=== PATIENT | male | born 1965 | race Caucasian/White ===

== ENCOUNTER 2020-09-05 09:34 | Emergency (ER) | payer OTHER, SELFPAY ==
--- NOTE | ~2020-09-05 | CT_ITS ---
EXAMINATION: CT ABDOMEN AND PELVIS WITH CONTRAST CLINICAL INFORMATION: Left lower quadrant pain. Prior history diverticulitis COMPARISON: Portable chest 09/05/2020 TECHNIQUE: Multidetector volumetric images were obtained from the superior aspect of the liver through the pubic symphysis following administration 85 mL of Omnipaque 350 intravenous contrast. Sagittal and coronal reformatted images were obtained on the technologist's workstation. Oral contrast: No This CT examination was performed using dose optimization techniques as appropriate, variously including the following: *Automated exposure control *Adjustment of mA and/or kV according to patient size (this includes techniques or standardized protocols for targeted exams where dose is matched to indication/reason for exam; i.e. extremities or head) *Use of iterative reconstruction technique DLP: 1016 mGy-cm FINDINGS: LUNG BASES: The visualized lung bases are unremarkable. LIVER, GALLBLADDER, AND BILIARY TREE: The liver is within upper limits of normal size and smooth in contour. There is mild hepatic steatosis. No focal hepatic parenchymal lesion or intrahepatic ductal dilatation. The gallbladder shows no stone or dilatation or wall thickening. No pericholecystic inflammatory changes. The common duct is unremarkable. PANCREAS: Unremarkable. SPLEEN: Normal in size. Incidental 1.6 cm splenule left upper quadrant. ADRENAL GLANDS: Unremarkable. KIDNEYS AND URETERS: There is a congenital horseshoe kidney with functioning isthmus. There are multiple nonobstructing left renal calculi measuring up to 0.6 cm. No hydronephrosis, hydroureter, or perinephric stranding. Subcentimeter cyst present on right. BLADDER: Unremarkable. GASTROINTESTINAL TRACT: There are focal inflammatory changes around the proximal descending colon in an area of diverticula consistent with diverticulitis. There is no proximal obstruction, paracolic fluid collection, pneumatosis, or free air. The appendix is normal. There is no ascites or fluid collection. Some very subtle increased attenuation is present in the central mesentery consistent with mesenteric lipodystrophy. ABDOMINAL WALL: No significant hernia is appreciated. LYMPH NODES: No lymphadenopathy. VASCULAR: There is a chronic appearing heavily calcified thrombus within the proximal left main renal vein measuring 1.4 cm in diameter by 3.2 cm in length. PELVIC VISCERA: Unremarkable. OSSEOUS STRUCTURES: No acute bony abnormality. There are degenerative changes L4-L5 and L5-S1. Results called to provider Terri Gonzalez PA-C in the Emergency Department at [address]/CT abdomen pelvis w con IMPRESSION: 1. Diverticulitis in region of proximal descending colon. No paracolic fluid collection, proximal obstruction, or free air. 2. Mild central mesentery lipodystrophy. No adenopathy or ascites. 3. 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 No hydronephrosis or perinephric stranding. 4. 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
--- NOTE | ~2020-09-05 | XR_ITS ---
EXAMINATION: XR CHEST CLINICAL INFORMATION: Cough and fever COMPARISON: None TECHNIQUE: Frontal view of the chest was obtained. FINDINGS: No significant abnormality is noted involving the heart, lungs, mediastinum, bony thorax or soft tissues. XR/XR chest 1V IMPRESSION: Unremarkable chest examination.
[2020-09-05 09:37] VITALS: BP 139/72; PULSE 84; RESP 17; TEMP 37.4; O2SAT 98; BMI 41.5
[2020-09-05 09:54] VITALS: BP 145/88; PULSE 91; RESP 16; TEMP 37.1; O2SAT 98; BMI 40.1
[2020-09-05 09:59] VITALS: BP 145/88; PULSE 91; RESP 16; TEMP 37.1; O2SAT 98
[2020-09-05 10:09] VITALS: BP 145/88; PULSE 91; RESP 16; TEMP 37.1; O2SAT 98
[2020-09-05 10:33] LABS: Basophils Percent Auto 0.4 % (0-2); Eosinophils Absolute Auto 0.2 X10*3/uL (0.0-0.4); Eosinophils Percent Auto 2.1 % (0-4); Hematocrit 50.2 % (42-52); Hemoglobin 16.5 g/dl (14.0-18.0); Imm Gran Abs Auto 0.04 X10*3/uL (0.00-0.03); Imm Gran Pct Auto 0.4 % (0.0-0.4); Lymphocytes Absolute Auto 1.8 X10*3/uL (1.2-4.9); Lymphocytes Percent Auto 15.5 % (20-40); MANUAL DIFF FLAG NO; Mean Corpuscular HGB Conc 32.9 g/dl (31.0-36.0); Mean Corpuscular Hemoglobin 28.1 pg (27.0-33.0); Mean Corpuscular Volume 85.5 fL (80-98); Mean Platelet Volume 11.2 fL (9.4-12.4); Monocytes Absolute Auto 0.9 X10*3/uL (0.1-1.2); Neutrophils Absolute Auto 8.3 X10*3/uL (2.0-8.3); Neutrophils Percent Auto 73.6 % (45-73); Platelet Count 145 X10*3/uL (160-400); Red Blood Count 5.87 X10*6/uL (4.60-5.80); White Blood Count 11.3 X10*3/uL (4.8-10.8)
--- NOTE | 2020-09-05 10:52 | ED_ITS ---
HPI - Abdominal Pain General Chief Complaint: Abdominal Pain Stated Complaint: abd pain Time Seen by Provider: 09/05/20 10:12 Source: patient Mode of arrival: ambulatory History of Present Illness HPI narrative: 55-year-old male with a past medical history of diverticulosis presenting to the ED complaining of LLQ abdominal pain and fever T-max 101? x2 days. Admits symptoms are similar to prior diverticulitis. Also reports dry cough beginning this morning. Denies chills, nausea/vomiting, diarrhea, dysuria/hematuria, flank pain, CP/SOB MD elicited complaint: abdominal pain Related Data Previous Rx's Medication Instructions Recorded aspirin 81 mg PO DAILY #30 tab 09/05/20 ciprofloxacin HCl 500 mg PO Q12H 7 Days #14 tab 09/05/20 metronidazole [Flagyl] 500 mg PO Q8H 7 Days #21 tab 09/05/20 Allergies Allergy/AdvReac Type Severity Reaction Status Date / Time No Known Allergies Allergy Verified 09/05/20 10:01 Review of Systems Review of Systems Constitutional: + Fever, No Chills, No Fatigue, No Malaise Cardiovascular: No Chest Pain, No SOB Respiratory: + Cough, No Sputum, No Wheezing, No Dyspnea Gastrointestinal: No Nausea, No Vomiting, No Diarrhea, No Constipation, + Abdominal pain Genitourinary: No irregular bleeding, No Dysuria, No Urinary Frequency, No Hematuria, No Flank Pain, No Urinary Flow Changes, No Hesitancy Musculoskeletal: No joint pain, No Myalgias Skin: No Skin Lesions, No rash Neuro: No Weakness, No Numbness Yes all other systems are reviewed and are negative Physical Exam Vital Signs: Vital Signs: Last Vital Signs Temp 98.7 F 09/05/20 12:33 Pulse 76 09/05/20 14:01 Resp 15 09/05/20 14:01 BP 145/85 H 09/05/20 14:01 Pulse Ox 97 09/05/20 14:01 Body Mass Index 40.1 Const: General: cooperative, healthy appearing and comfortable Orientation/consciousness: patient oriented x3 Limitations: no limitations HENMT: Head: Yes normal to inspection Ears: hearing grossly normal bilaterally General nose exam: Normal external nose present Face and sinus: Yes normal facial exam Eyes: General: appearance normal, both eyes and all related structures EOM: EOMs intact bilaterally Neck: Neck: Yes normal visual inspection and Yes no meningeal signs Resp: Effort & Inspection: normal respiratory effort Auscultation: clear to auscultation bilaterally, no rhonchi and no wheezes Cardio: Rate: regular rate Heart sounds: S1 normal heart sound present and S2 normal heart sound present GI: Inspection: Yes normal to inspection Palpation (GI): Soft to palpation, Tenderness to palpation present (GI) in the LLQ, no guarding and not rigid : General: Yes no CVA tenderness Back/Spine/Pelvis: Back: no CVA tenderness Skin: Rashes: no rashes Wounds: no wounds Neuro: General: patient oriented x3 and no meningeal signs Gait exam (Neuro): Normal gait present Extrem: General: Yes normal to inspection Course Course Course Narrative: -mild leukocytosis of 11.3, labs otherwise unremarkable, UA negative -CXR unremarkable CT abdomen pelvis w con IMPRESSION: 1. Diverticulitis in region of proximal descending colon. No paracolic fluid collection, proximal obstruction, or free air. 2. Mild central mesentery lipodystrophy. No adenopathy or ascites. 3. 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 No hydronephrosis or perinephric stranding. 4. 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 > will consult vascular, Dr. Lanza pertaining to thrombus in left renal vein -[id number]--Spoke to vascular Dr. Lanza recommended initiating aspirin 81 daily. Will have patient follow-up with vascular/GI outpatient. Patient tolerated p.o. in the ED without difficulty. Worrisome signs and symptoms of strict return precautions discussed CT results obtained from [facility] from 10/13/2014 which showed a heterogeneous appearance of the left renal vein without enlargement of the left renal moiety or the left sided perinephric fat stranding which probably reflects unopacified blood from the left gonadal vein mixing into the left renal vein MDM - Abdominal Pain MDM Narrative Medical decision making narrative: 55-year-old male with a past medical history of diverticulosis presenting to the ED complaining of LLQ abdominal pain and fever T-max 101? x2 days. On exam VSS, NAD, abdomen soft with LLQ ttp, lungs CTA. Concern for diverticulitis vs colitis vs viral syndrome/COVID-19. Rule out pneumonia. Lower concern for appendicitis/UTI/pyelo or renal stone Plan: Labs, UA, CXR, COVID-19 testing, IVF, reassess Medical Records Attestation: I reviewed the patient's medical records. Lab Data Attestation: I reviewed the patient's lab results. Result diagrams: 09/05/20 10:13 09/05/20 10:13 Labs: Lab Results 09/05/20 09/05/20 09/05/20 Range/Units 10:13 10:13 10:13 WBC 11.3 H (4.8-10.8) X10*3/uL RBC 5.87 H (4.60-5.80) X10*6/uL Hgb 16.5 (14.0-18.0) g/dl Hct 50.2 (42-52) % MCV 85.5 (80-98) fL MCH 28.1 (27.0-33.0) pg MCHC 32.9 (31.0-36.0) g/dl RDW 13.0 (11.0-16.0) % Plt Count 145 L (160-400) X10*3/uL MPV 11.2 (9.4-12.4) fL Immature Gran % (Auto) 0.4 (0.0-0.4) % Neut % (Auto) 73.6 H (45-73) % Lymph % (Auto) 15.5 L (20-40) % Ashe % (Auto) 8.0 (2-11) % Eos % (Auto) 2.1 (0-4) % Baso % (Auto) 0.4 (0-2) % Lymph # (Auto) 1.8 (1.2-4.9) X10*3/uL [place] # (Auto) 0.9 (0.1-1.2) X10*3/uL Eos # (Auto) 0.2 (0.0-0.4) X10*3/uL Baso # (Auto) 0.0 (0.0-0.2) X10*3/uL Abs Immat Gran (auto) 0.04 H (0.00-0.03) X10*3/uL Absolute Neuts (auto) 8.3 (2.0-8.3) X10*3/uL Absolute Nucleated RBC 0.000 (0.0-0.012) X10*3/uL Nucleated RBC % (auto) 0.0 (0.0-0.2) /100WBC Hold Blue Top SEE NOTE Sodium 137 (135-145) mmol/L Potassium 4.1 (3.3-5.1) mmol/L Chloride 102 (96-108) mmol/L Carbon Dioxide 24 (22-29) mmol/L Anion Gap 15 (12-20) BUN 14 (9-16) mg/dL Creatinine 0.90 (0.5-1.4) mg/dL Estim Creat Clear Calc 127.0 Estimated GFR > 60 Random Glucose 109 (60-115) mg/dL Calcium 9.1 (8.4-10.2) mg/dL Total Bilirubin 1.1 H (0.0-1.0) mg/dL AST 18 (5-37) U/L ALT 20 (0-40) U/L Alkaline Phosphatase 63 (39-117) U/L Total Protein 7.2 (6.5-8.0) g/dL Albumin 4.0 (3.5-5.0) g/dL Lipase 20 (8-78) U/L Urine Color Urine Appearance Urine pH (5.0-8.0) Ur Specific [place] (1.005-1.025) Urine Protein (NEG-TRACE) MG/DL Urine Glucose (UA) (NEG) MG/DL Urine Ketones (NEG) MG/DL Urine Blood (NEG) Urine Nitrite (NEG) Ur Leukocyte Esterase (NEG) COVID-19 (ESTRELLA) (Negative) COVID-19 Clin Com 09/05/20 09/05/20 Range/Units 11:05 12:34 WBC (4.8-10.8) X10*3/uL RBC (4.60-5.80) X10*6/uL Hgb (14.0-18.0) g/dl Hct (42-52) % MCV (80-98) fL MCH (27.0-33.0) pg MCHC (31.0-36.0) g/dl RDW (11.0-16.0) % Plt Count (160-400) X10*3/uL MPV (9.4-12.4) fL Immature Gran % (Auto) (0.0-0.4) % Neut % (Auto) (45-73) % Lymph % (Auto) (20-40) % [place]he % (Auto) (2-11) % Eos % (Auto) (0-4) % Baso % (Auto) (0-2) % Lymph # (Auto) (1.2-4.9) X10*3/uL [place]he # (Auto) (0.1-1.2) X10*3/uL Eos # (Auto) (0.0-0.4) X10*3/uL Baso # (Auto) (0.0-0.2) X10*3/uL Abs Immat Gran (auto) (0.00-0.03) X10*3/uL Absolute Neuts (auto) (2.0-8.3) X10*3/uL Absolute Nucleated RBC (0.0-0.012) X10*3/uL Nucleated RBC % (auto) (0.0-0.2) /100WBC Hold Blue Top Sodium (135-145) mmol/L Potassium (3.3-5.1) mmol/L Chloride (96-108) mmol/L Carbon Dioxide (22-29) mmol/L Anion Gap (12-20) BUN (9-16) mg/dL Creatinine (0.5-1.4) mg/dL Estim Creat Clear Calc Estimated GFR Random Glucose (60-115) mg/dL Calcium (8.4-10.2) mg/dL Total Bilirubin (0.0-1.0) mg/dL AST (5-37) U/L ALT (0-40) U/L Alkaline Phosphatase (39-117) U/L Total Protein (6.5-8.0) g/dL Albumin (3.5-5.0) g/dL Lipase (8-78) U/L Urine Color DARK YELLOW Urine Appearance HAZY Urine pH 5.5 (5.0-8.0) Ur Specific [place] 1.025 (1.005-1.025) Urine Protein NEG (NEG-TRACE) MG/DL Urine Glucose (UA) NEG (NEG) MG/DL Urine Ketones 40 (NEG) MG/DL Urine Blood NEG (NEG) Urine Nitrite NEG (NEG) Ur Leukocyte Esterase NEG (NEG) COVID-19 (ESTRELLA) Negative (Negative) COVID-19 Clin Com See Note Discharge Plan Discharge Clinical Impression: Diverticulitis, Thrombosis of left renal vein Patient Disposition: Home, Self-Care Instructions: Diverticulitis (ED) Additional Instructions: You have diverticulitis, Cipro and Flagyl are antibiotics, take as prescribed In addition patient start taking aspirin for the thrombus that was seen your left renal vein. You need to follow-up with vascular specialist for this If your pain persists or worsens, becomes unbearable, have fever, inability to eat or drink, persistent nausea/vomiting, or blood in her stool return to the ED immediately Prescriptions: New metronidazole [Flagyl] 500 mg tablet 500 mg PO Q8H 7 Days Qty: 21 RF: 0 ciprofloxacin HCl 500 mg tablet 500 mg PO Q12H 7 Days Qty: 14 RF: 0 aspirin 81 mg tablet,chewable 81 mg PO DAILY Qty: 30 RF: 0 Referrals: Sedrick Brush MD [Physician] - 2 days Cachorro Lanza MD [Physician] - 2 days Interventions: ED Discharge Assessment Last Done: 09/05/20 15:05 Discharge Date/Time: 09/05/20 15:08 [facility], [facility] Past Medical History Attestation statement: The following information was validated with the patient. Medical History (Updated 09/05/20 @ 14:46 by JUSTINA Ochoa) Diverticulosis Social History Social History Alcohol intake: never Smoking Status: Never smoker Use of substances other than those prescribed or required for medical reasons: No Advance Directives: No Advance Directives Information Provided: No
[2020-09-05 10:58] LABS: Alanine Aminotransferase 20 U/L (0-40); Alkaline Phosphatase 63 U/L (39-117); Anion Gap 15 (12-20); Aspartate Amino Transferase 18 U/L (5-37); Bilirubin Total 1.1 mg/dL (0.0-1.0); Blood Urea Nitrogen 14 mg/dL (9-16); Calcium 9.1 mg/dL (8.4-10.2); Carbon Dioxide 24 mmol/L (22-29); Chloride 102 mmol/L (96-108); Estimated Glomerular Filt Rate > 60; Glucose Random 109 mg/dL (60-115); Lipase 20 U/L (8-78); Potassium 4.1 mmol/L (3.3-5.1); Sodium 137 mmol/L (135-145); Total Protein 7.2 g/dL (6.5-8.0)
[2020-09-05] MEDS: 0.9 % Sodium Chloride 1,000 ML 999 ML IVCONT (11:00)
[2020-09-05] MEDS: Ketorolac Tromethamine 15 MG/ML VIAL IVPUSH (11:00)
[2020-09-05 11:32] LABS: COVID-19 Test Negative (Negative)
[2020-09-05] MEDS: iohexoL 350 MG/ML 100 ML INFUS..BTL IV (12:10)
[2020-09-05 12:33] VITALS: BP 148/84; PULSE 72; RESP 16; TEMP 37.1; O2SAT 98
[2020-09-05 12:46] LABS: Glucose Urine UA NEG (NEG); Leukocyte Esterase Urine NEG (NEG); Nitrite Urine NEG (NEG); PH 5.5 (5.0-8.0); Specific Gravity - Urine 1.025 (1.005-1.025); Urine Blood NEG (NEG); Urine Ketones 40 MG/DL (NEG); Urine Protein NEG (NEG-TRACE)
[2020-09-05 12:47] LABS: Appearance Urine HAZY; Color Urine DARK YELLOW
[2020-09-05] MEDS: metroNIDAZOLE 500 MG TABLET PO (14:00)
[2020-09-05 14:01] VITALS: BP 145/85; PULSE 76; RESP 15; O2SAT 97
== END 2020-09-05 15:08 | disposition home or self-care (01) ==
PROVIDERS: Physician Assistant; Emergency Provider Emergency Medicine; PCP Internal Medicine
DX: K57.32 Diverticulitis of large intestine without perforation or abscess without bleeding (principal); I82.3 Embolism and thrombosis of renal vein; Z20.822 Contact with and (suspected) exposure to COVID-19
CPT/HCPCS: 36415; 71045; 74177; 80053; 81003; 83690; 85025; 87635; 96361; 96374; 99284; 99285; J1885; Q9967

== ENCOUNTER 2023-06-27 13:21 | Inpatient (IN) | payer OTHER, SELFPAY ==
--- NOTE | ~2023-06-27 | CT_ITS ---
EXAMINATION: CT ABDOMEN AND PELVIS WITH CONTRAST CLINICAL INFORMATION: Diverticulitis. Left lower quadrant abdominal pain. COMPARISON: CT abdomen and pelvis from 09/05/2020. TECHNIQUE: Multidetector volumetric imaging was performed through the abdomen and pelvis after the administration of 85 mL of Omnipaque 350 intravenous contrast. Sagittal and coronal reformatted images were obtained on the technologist's workstation. This CT examination was performed using dose optimization techniques as appropriate, variously including the following: *Automated exposure control. *Adjustment of mA and/or kV according to patient size (this includes techniques or standardized protocols for targeted exams where dose is matched to indication/reason for exam; i.e. extremities or head). *Use of iterative reconstruction technique. DLP: 1111 mGy-cm. FINDINGS: Lower Chest: Mild to moderate bilateral dependent atelectasis. Otherwise, no diffuse or focal parenchymal abnormalities in the visualized lung bases. No demonstrated abnormalities of the visualized cardiac structures. Liver, Biliary Ducts, and Gallbladder: The liver is normal in size and attenuation without focal hepatic lesions or biliary ductal dilatation. The gallbladder is physiologically distended without radiopaque gallstones, pericholecystic fluid, or significant gallbladder wall thickening. Pancreas: The pancreas is normal in appearance. Adrenal Glands: The adrenal glands are normal in appearance. Spleen: The spleen is normal in appearance. Kidneys and Ureters: Horseshoe morphology of the kidney joint in the midline beneath the inferior mesenteric artery. Few nonobstructive renal stones associated with the left renal moiety, measuring up to 0.4 cm. No evidence of hydronephrosis. No ureterolithiasis or hydroureter. Urinary Bladder: The urinary bladder is partially distended without focal wall thickening. No bladder calculi are demonstrated. Gastrointestinal System: The stomach is decompressed and therefore not well evaluated on this exam. The small bowel is of normal caliber without regions of abnormal wall enhancement. Moderate descending and sigmoid colon diverticulosis. Moderate fat stranding surrounding an approximately 5 cm long segment of the descending colon with edematous wall thickening. No demonstrated discrete extraluminal fluid collection or gas. Otherwise, the colon is normal in appearance without additional segments of focal wall thickening or pericolonic inflammatory change. Normal appendix. Genitourinary: The prostate gland and seminal vesicles are normal in appearance. Intra-abdominal and Retroperitoneal Spaces: No intra-abdominal free fluid collections or gas. No mesenteric, retroperitoneal, or inguinal lymphadenopathy. Vasculature: The abdominal aorta is of normal contour and caliber. Similar to prior exam, there is a 5 cm long segment of coarse irregular calcification within an expanded left renal vein, suggestive of chronic nonocclusive thrombus. Musculoskeletal: Moderate multilevel degenerative changes of the spine. Straightening of the normal lumbar lordosis. Mild degenerative stepwise retrolistheses of L3-S1. Moderate degenerative disc disease at L4-L5 and L5-S1. Moderate disc bulges with posterior osseous ridging and facet joint arthropathy leads to osseous stenoses of the L4-L5 and L5-S1 neural foramina. No suspicious lytic or sclerotic osseous lesions demonstrated. No soft tissue masses demonstrated. CT/CT abdomen pelvis w IV con IMPRESSION: 1. Diverticulitis involving approximately 5 cm section of the descending colon. Moderate pericolonic fat stranding without demonstrated discrete extraluminal fluid collection or gas. 2. Horseshoe kidney with nonobstructive nephrolithiasis. 3. 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 4. 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
--- NOTE | 2023-06-27 13:32 | ED_ITS ---
HPI - Abdominal Pain General Chief Complaint: Abdominal Pain Stated Complaint: diverticulitis Time Seen by Provider: 06/27/23 15:36 Source: patient Mode of arrival: ambulatory Limitations: no limitations History of Present Illness HPI narrative: This is a 58-year-old male history of obesity, diverticulitis presenting with complaints of severe left lower quadrant pain that started yesterday and has been progressively worsening along with decreased bowel movements over the past few days. Patient reports his last bowel movement was this morning but it was very small and not his typical. Patient states he has not had any flatus. He denies nausea, vomiting, diarrhea, headache, vision changes, fevers, chills, chest pain and shortness of breath. Related Data Previous Rx's Medication Instructions Recorded aspirin 81 mg chewable tablet 81 mg PO DAILY #30 tabs 09/05/20 ciprofloxacin HCl 500 mg tablet 500 mg PO Q12H 7 days #14 tabs 09/05/20 metronidazole 500 mg tablet 500 mg PO Q8H 7 days #21 tabs 09/05/20 (Flagyl) Allergies Allergy/AdvReac Type Severity Reaction Status Date / Time No Known Allergies Allergy Verified 09/05/20 10:01 Review of Systems Review of Systems Constitutional : No Weight loss, No Fever, No Chills, No Fatigue, No Malaise ENT/Mouth : No sore throat, No Rhinorrhea Eyes: No Eye Pain, No Swelling, No Redness Cardiovascular : No Chest Pain, No SOB, No Dyspnea on Exertion, No Orthopnea, No Edema, No Palpitations Respiratory : No Cough, No Sputum, No Wheezing Gastrointestinal : No Nausea, No Vomiting, No Diarrhea, No Constipation, + abdominal Pain, No Hematochezia, No Melena Genitourinary : No Dysuria, No Urinary Frequency, No Hematuria, Musculoskeletal : No joint pain, No Myalgias, No Joint Swelling Skin : No Skin Lesions, No rash Neuro : No Weakness, No Numbness, No Dizziness, No Headache Psych : No Anxiety/Panic, No Depression All other systems reviewed and are negative Yes all other systems are reviewed and are negative [facility] Past Medical History Attestation statement: The following information was validated with the patient. Source: old records reviewed and nursing notes reviewed Medical History (Updated 06/27/23 @ 18:09 by JUSTINA Solares) Diverticulosis Social History Social History Alcohol intake: never Smoked in Last 30 Days: No Use of substances other than those prescribed or required for medical reasons: No Advance Directives: No Advance Directives Information Provided: Yes Physical Exam ED Vital Signs: Vital Signs - 24 hr 06/27/23 13:33 06/27/23 16:14 06/27/23 17:55 Temperature 98.3 F 97.6 F 98.3 F Pulse Rate 100 75 76 Respiratory Rate 16 16 16 Blood Pressure 147/111 H 124/79 133/70 Pulse Oximetry 95 97 95 Oxygen Delivery Method Room Air Room Air Room Air BMI result Body Mass Index 43.0 vss Appearance: Alert.? Oriented X3.? No acute distress.? Head: Normocephalic, atraumatic, no step-offs or deformities Eyes: Pupils equal, round and reactive to light.? ENT: Pharynx normal.? Neck: Normal inspection.? Neck supple.? CVS: Normal heart rate and rhythm.? Pulses normal.? Respiratory: No respiratory distress.? Breath sounds normal.? Abdomen: Soft and significant left lower quadrant pain..? Skin: Skin warm and dry.? Normal skin color.? Normal skin turgor.? Extremities: No lower extremity edema.? No calf ttp. 5/5 strength to bilateral upper and lower extremities Neuro: Oriented X 3.? No motor deficit.? No sensory deficit. CN 2-12 intact Course Course Course Narrative: RME: Left abdominal pain w/history of diverticulitis. C/O severe pain starting yesterday. No fevers, chest pain, n/v/d. Last BM 'barely' this AM. No bleeding from rectum. Denies passing flatus. Hypertensive in triage: 147/111 Reevaluation(s) Reevaluation #1: CBC with leukocytosis and neutrophil predominance. Chemistry unremarkable no acute findings requiring intervention. UA, CT scan pending.Patient still in significant pain. Time: 16:18 Reevaluation #2: Dilaudid was ordered and seem to help. CT scan still pending. Signed out to Diaz PRESSLEY Time: 18:09 Medical Decision Making Medical Decision Making [facility] Narrative: [id number] 58-year-old male presents with 2 days of severe left lower quadrant pain with decreased bowel movements. Physical exam with left lower quadrant tenderness to palpation. Patient appears very uncomfortable. Hypertensive likely secondary to pain. History and physical exam concerning for acute diverticulitis versus obstruction. Unlikely acute abdomen, appendicitis, pancreatitis, cholecystitis. Hypertension likely secondary to pain unlikely hypertensive urgency or emergency. Plan at this time labs, imaging, urine. At this time infection suspected. Blood cultures, lactic acid will be obtained will give fluids and antibiotics. Differential Diagnosis Differential Diagnoses: The differential diagnosis associated with the presentation includes History and physical exam concerning for acute diverticulitis versus obstruction. Unlikely acute abdomen, appendicitis, pancreatitis, cholecystitis. Hypertension likely secondary to pain unlikely hypertensive urgency or emergency. Admission/Observation Consideration of admission/observation: Escalation of care including admission/observation considered Likely Consult Healthcare Provider Management of the patient was discussed with: Geographic Information System Analyst Lab Data MDM Lab Attestation statement: I reviewed the patient's lab results. 06/27/23 14:21 06/27/23 14:21 Labs: Lab Results 06/27/23 06/27/23 06/27/23 Range/Units 14:21 16:46 17:56 WBC 15.9 H (4.8-10.8) X10*3/uL RBC 5.75 (4.60-5.80) X10*6/uL Hgb 16.3 (14.0-18.0) g/dl Hct 49.1 (42.0-52.0) % MCV 85.4 (80.0-98.0) fL MCH 28.3 (27.0-33.0) pg MCHC 33.2 (31.0-36.0) g/dl RDW 13.0 (11.0-16.0) % Plt Count 144 L (160-400) X10*3/uL MPV 10.5 (9.4-12.4) fL Immature Gran % (Auto) 0.4 (0.0-0.4) % Neut % (Auto) 78.0 H (45-73) % Lymph % (Auto) 9.5 L (20-40) % Bartholomew % (Auto) 9.8 (2-11) % Eos % (Auto) 1.9 (0-4) % Baso % (Auto) 0.4 (0-2) % Lymph # (Auto) 1.5 (1.2-4.9) X10*3/uL Bartholomew # (Auto) 1.6 H (0.1-1.2) X10*3/uL Eos # (Auto) 0.3 (0.0-0.4) X10*3/uL Baso # (Auto) 0.1 (0.0-0.2) X10*3/uL Abs Immat Gran (auto) 0.07 H (0.00-0.03) X10*3/uL Absolute Neuts (auto) 12.4 H (2.0-8.3) x10*3/uL Absolute Nucleated RBC 0.000 (0.0-0.012) X10*3/uL Nucleated RBC % (auto) 0.0 (0.0-0.2) /100WBC Smear Tech's Comments VERIFIED Sodium 138 (135-145) mmol/L Potassium 4.3 (3.3-5.1) mmol/L Chloride 105 (96-108) mmol/L Carbon Dioxide 26 (22-29) mmol/L Anion Gap 11 L (12-20) BUN 16 (9-16) mg/dL Creatinine 0.85 (0.5-1.4) mg/dL Estim Creat Clear Calc 134.8 Estimated GFR > 60 Random Glucose 95 (60-115) mg/dL Lactic Acid 1.2 (0.5-2.0) mmol/L Calcium 9.3 (8.4-10.2) mg/dL Phosphorus 3.0 (2.7-4.5) mg/dL Magnesium 2.0 (1.6-2.6) mg/dL Total Bilirubin 1.0 (0.0-1.0) mg/dL AST 20 (5-37) U/L ALT 25 (0-40) U/L Alkaline Phosphatase 65 (39-117) U/L Total Protein 7.5 (6.5-8.0) g/dL Albumin 4.1 (3.5-5.0) g/dL Triglycerides 121 (<150) mg/dL Lipase 283 H (8-78) U/L Urine Color Yellow Urine Appearance Clear Urine pH 6.5 (5.0-9.0) Ur Specific [place] >= 1.030 H (1.005-1.025) Urine Protein Negative (Neg-Trace) mg/dL Urine Glucose (UA) Negative (Negative) mg/dL Urine Ketones Negative (Negative) mg/dL Urine Blood Negative (Negative) Urine Nitrite Negative (Negative) Ur Leukocyte Esterase Negative (Negative) Independent Interpretation I performed an independent interpretation of an: CT Scan Radiology Impression Discussion of test interpretation with radiology: I have reviewed the radiologist's reading. External Record Review External record reviewed: Inpatient record, Office record, Outpatient record, Prior outpatient labs, Prior outpatient radiology, Primary care record and Outside ED record Medications Administered Discontinued Medications Generic Name Dose Route Start Last Admin Trade Name Freq PRN Reason Stop Dose Admin Hydromorphone HCl 1 mg 06/27/23 16:11 06/27/23 16:58 Hydromorphone Hcl 1 Mg/Ml Syringe IVPUSH 06/27/23 16:12 1 mg ONCE ONE Administration Protocol Sodium Chloride 4,082.34 mls @ 4,082.34 mls/hr 06/27/23 16:18 06/27/23 17:06 Ns 30 ml/kg infuse over 1 hr (4082.34 ml) 06/27/23 17:17 4,082.34 mls/hr IV Administration .Q1H STA Piperacillin Sod/Tazobactam 50 mls @ 100 mls/hr 06/27/23 16:18 06/27/23 17:48 Sod 3.375 gm/ Sodium Chloride IV 06/27/23 16:47 Infused ONCE ONE Infusion Iohexol 100 ml 06/27/23 17:25 06/27/23 17:28 Iohexol 350 Mg/Ml 100 Ml Infus..Btl IV 06/27/23 17:26 85 ml ONCE ONE Administration Morphine Sulfate 2 mg 06/27/23 13:40 06/27/23 13:45 Morphine Sulfate 2 Mg/Ml Cartridge IM 06/27/23 13:41 2 mg ONCE ONE Administration Protocol Ondansetron HCl 4 mg 06/27/23 13:40 06/27/23 13:44 Ondansetron Odt 4 Mg Tab.Rapdis TRANSLINGU 06/27/23 13:41 4 mg ONCE ONE Administration Critical Care Time Critical Care Time Critical Care Time: Yes Total Critical Care Time: 45 Attestation: I attest to this time spent taking care of the patient, obtaining history, physical, reviewing labs, imaging, speaking to my attending, speaking to specialist. Discharge Plan Discharge Clinical Impression: Diverticulitis Patient Disposition: Still a Patient Prescriptions: No Action metronidazole [Flagyl] 500 mg tablet 500 mg PO Q8H 7 Days Qty: 21 0RF ciprofloxacin HCl 500 mg tablet 500 mg PO Q12H 7 Days Qty: 14 0RF aspirin 81 mg tablet,chewable 81 mg PO DAILY Qty: 30 0RF
[2023-06-27 13:33] VITALS: BP 147/111; PULSE 100; RESP 16; TEMP 36.8; O2SAT 95; BMI 43.0
[2023-06-27] MEDS: Ondansetron ODT 4 MG TAB.RAPDIS TRANSLINGU (13:44)
[2023-06-27] MEDS: Morphine Sulfate 2 MG/ML CARTRIDGE IM (13:45)
[2023-06-27 14:28] LABS: Basophils Absolute Auto 0.1 X10*3/uL (0.0-0.2); Basophils Percent Auto 0.4 % (0-2); Eosinophils Absolute Auto 0.3 X10*3/uL (0.0-0.4); Eosinophils Percent Auto 1.9 % (0-4); Hematocrit 49.1 % (42.0-52.0); Hemoglobin 16.3 g/dl (14.0-18.0); Imm Gran Abs Auto 0.07 X10*3/uL (0.00-0.03); Imm Gran Pct Auto 0.4 % (0.0-0.4); Lymphocytes Absolute Auto 1.5 X10*3/uL (1.2-4.9); Lymphocytes Percent Auto 9.5 % (20-40); MANUAL DIFF FLAG SCAN; Mean Corpuscular HGB Conc 33.2 g/dl (31.0-36.0); Mean Corpuscular Hemoglobin 28.3 pg (27.0-33.0); Mean Corpuscular Volume 85.4 fL (80.0-98.0); Mean Platelet Volume 10.5 fL (9.4-12.4); Monocytes Absolute Auto 1.6 X10*3/uL (0.1-1.2); Monocytes Percent Auto 9.8 % (2-11); Neutrophils Absolute Auto 12.4 x10*3/uL (2.0-8.3); Platelet Count 144 X10*3/uL (160-400); Red Blood Count 5.75 X10*6/uL (4.60-5.80); SCAN SMEAR FLAG 1; White Blood Count 15.9 X10*3/uL (4.8-10.8)
[2023-06-27 14:42] LABS: Alanine Aminotransferase 25 U/L (0-40); Albumin Level 4.1 g/dL (3.5-5.0); Alkaline Phosphatase 65 U/L (39-117); Anion Gap 11 (12-20); Aspartate Amino Transferase 20 U/L (5-37); Blood Urea Nitrogen 16 mg/dL (9-16); Calcium 9.3 mg/dL (8.4-10.2); Carbon Dioxide 26 mmol/L (22-29); Chloride 105 mmol/L (96-108); Creatinine Clr Calc Pharmacy 134.8; Estimated Glomerular Filt Rate > 60; Glucose Random 95 mg/dL (60-115); Potassium 4.3 mmol/L (3.3-5.1); Sodium 138 mmol/L (135-145); Total Protein 7.5 g/dL (6.5-8.0)
[2023-06-27 14:49] LABS: SLIDE REVIEW VERIFIED
[2023-06-27 16:05] LABS: Lipase 283 U/L (8-78)
[2023-06-27 16:14] VITALS: BP 124/79; PULSE 75; RESP 16; TEMP 36.4; O2SAT 97
[2023-06-27 16:43] LABS: Triglycerides 121 mg/dL (<150)
--- NOTE | 2023-06-27 16:48 | MHC.EDTECH ---
LACTIC ACID AND BOTH SETS OF BLOOD CULTURE DRAWN AND SENT TO LAB .
[2023-06-27] MEDS: HYDROmorphone HCl 1 MG/ML SYRINGE IVPUSH ×2 (16:58→19:48)
[2023-06-27 17:04] LABS: Lactic Acid 1.2 mmol/L (0.5-2.0)
[2023-06-27] MEDS: Piperacillin Sodium/Tazobactam 3.375 GM in 0.9 % Sodium Chloride 50 ML IV ×2 (17:06→22:16)
[2023-06-27] MEDS: iohexoL 350 MG/ML 100 ML INFUS..BTL IV (17:28)
[2023-06-27 17:55] VITALS: BP 133/70; PULSE 76; RESP 16; TEMP 36.8; O2SAT 95
[2023-06-27 18:04] LABS: Appearance Urine Clear; Color Urine Yellow; Glucose Urine UA Negative (Negative); Leukocyte Esterase Urine Negative (Negative); Nitrite Urine Negative (Negative); PH 6.5 (5.0-9.0); Specific Gravity - Urine >= 1.030 (1.005-1.025); Urine Blood Negative (Negative); Urine Ketones Negative (Negative); Urine Protein Negative (Neg-Trace)
[2023-06-27 19:27] VITALS: BP 123/59; PULSE 80; RESP 17; TEMP 37.6; O2SAT 98
--- NOTE | 2023-06-27 20:33 | P.HPHOSP_ITS ---
History of Present Illness Date of Service: 06/27/23 Attending physician on admission: Leo Etienne Chief Complaint: Abdominal Pain Pt is a 58-year-old male with a PMH significant for?diverticulitis (2020 and 2021) and moderate persistent asthma who presents to the ED with?severe left- sided abdominal pain since last night. Patient states symptoms began approximately 22:00 when he developed severe, sharp and stabbing lower left- sided abdominal pain. Symptoms worsened this morning and patient thus presented to the ED for further evaluation. Denies any nausea or vomiting. Has had some constipation in the past few days; last bowel movement was earlier today when he went just ?a little bit? and stool was soft and watery. No hematochezia or melena. Patient's pain worsens with movement or deep breathing. Patient reports two previous episodes of diverticulitis, with the first one on 09/05/2020. [place] [facility] [place] home from the ED on oral antibiotics. The 2nd episode occurred approximately 1 year later and was much more severe. Patient then went to [facility] [place] and was hospitalized for 4 days. Patient reports current episode is somewhere in the middle, though does endorse significant 10/10 pain. Denies chest pain/pressure, palpitations. No fever, chills. Denies shortness of breath. In the ED pt was initially mildly hypertensive at 147/111 and had elevated temperature of 99.6 degrees, vitals otherwise WNL. Labs were significant for leukocytosis of 15.9 and lipase 283, otherwise grossly unremarkable. Stable H&H. No electrolyte imbalances. Renal and hepatic function WNL. Lactic acid WNL at 1.2. UA negative for UTI. CT of abdomen and pelvis found diverticulitis involving 5 cm section of descending colon with moderate pericolonic fat stranding without evidence for abscess or perforation. 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 Pt was treated with ondansetron, morphine, Dilaudid, IVF, and Zosyn. Pt will be admitted to the hospital for treatment and further evaluation of acute on chronic diverticulitis. Review of Systems 2 Review of Systems: Severe lower left-sided abdominal pain Denies nausea, vomiting No fever, chills Denies diarrhea No shortness a breath Denies chest pain/pressure, palpitations PMFSH Medical History (Updated 06/27/23 @ 22:02 by JUSTINA Graham) Moderate persistent asthma Diverticulosis Social History Alcohol intake: never Smoked in Last 30 Days: No Use of substances other than those prescribed or required for medical reasons: No Advance Directives: No Advance Directives Information Provided: Yes Meds Allergies Allergy/AdvReac Type Severity Reaction Status Date / Time No Known Allergies Allergy Verified 09/05/20 10:01 Home Medications Medication Instructions Recorded Confirmed Last Taken Type acetaminophen 325 mg tablet 650 mg PO Q6H PRN Pain 06/27/23 06/27/23 Unknown History (Tylenol) albuterol sulfate 90 mcg/actuation 2 puff inhalation Q6H PRN wheezing 06/27/23 06/27/23 Unknown History aerosol inhaler (Ventolin HFA) cholecalciferol (vitamin D3) 25 25 mcg PO DAILY 06/27/23 06/27/23 Unknown History mcg (1,000 unit) tablet (Vitamin D3) Physical Exam 2 Vital Signs and Narrative: Vital Signs: Last Vital Signs Temp 99.6 F 06/27/23 19:27 Pulse 80 06/27/23 19:27 Resp 17 06/27/23 19:27 BP 123/59 L 06/27/23 19:27 Pulse Ox 98 06/27/23 19:27 O2 Del Method Room Air 06/27/23 19:27 BMI result Body Mass Index 43.0 Constitutional: Alert, looks uncomfortable, in no acute distress. Mental Status: Oriented to person, place and time. Eyes: Pupils are equal, round, and reactive to light. Ear, Nose, and Throat: Oropharynx clear, mucous membranes moist. Ears and nose without deformities. Trachea midline. Respiratory: Clear to auscultation bilaterally. No wheezing, rales, or rhonchi. Cardiovascular: S1, S2 regular. No murmurs, rubs, or gallops. Gastrointestinal: Abdomen soft, non-distended, tenderness with guarding of left lower quadrant. Normal bowel sounds. Neurologic: Cranial nerves II-XII are grossly intact bilaterally. No focal neurological deficits. Moves all extremities spontaneously. Skin: Warm, dry. Musculoskeletal: No cyanosis or clubbing. Extremities: No edema. Psychiatric: Normal mood and affect. Results Labs 06/27/23 14:21 06/27/23 14:21 Labs: Laboratory Results - last 24 hr 06/27/23 06/27/23 06/27/23 14:21 16:46 17:56 MCV 85.4 MCH 28.3 MCHC 33.2 RDW 13.0 Plt Count 144 L MPV 10.5 Immature Gran % (Auto) 0.4 Neut % (Auto) 78.0 H Lymph % (Auto) 9.5 L [place] % (Auto) 9.8 Eos % (Auto) 1.9 Baso % (Auto) 0.4 Lymph # (Auto) 1.5 [place] # (Auto) 1.6 H Eos # (Auto) 0.3 Baso # (Auto) 0.1 Abs Immat Gran (auto) 0.07 H Absolute Neuts (auto) 12.4 H Absolute Nucleated RBC 0.000 Nucleated RBC % (auto) 0.0 Smear Tech's Comments VERIFIED Anion Gap 11 L Estim Creat Clear Calc 134.8 Estimated GFR > 60 Random Glucose 95 Lactic Acid 1.2 Calcium 9.3 Phosphorus 3.0 Magnesium 2.0 Total Bilirubin 1.0 AST 20 ALT 25 Alkaline Phosphatase 65 Total Protein 7.5 Albumin 4.1 Triglycerides 121 Lipase 283 H Urine Color Yellow Urine Appearance Clear Urine pH 6.5 Ur Specific [place] >= 1.030 H Urine Protein Negative Urine Glucose (UA) Negative Urine Ketones Negative Urine Blood Negative Urine Nitrite Negative Ur Leukocyte Esterase Negative Imaging Radiologist's Impressions: Impressions Abdomen/Pelvis CT 06/27/23 17:34 IMPRESSION: 1. Diverticulitis involving approximately 5 cm section of the descending colon. Moderate pericolonic fat stranding without demonstrated discrete extraluminal fluid collection or gas. 2. Horseshoe kidney with nonobstructive nephrolithiasis. 3. 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 4. 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 Assessment and Plan (1) Diverticulitis: Status: Acute Plan Pt is a 58-year-old male with a PMH significant for?diverticulitis (2020 and 2021) and moderate persistent asthma who presents to the ED with?severe left- sided abdominal pain since last night. Pt will be admitted to the hospital for treatment and further evaluation of acute on chronic diverticulitis. Acute diverticulitis Patient with lower left sided abdominal pain since last night CT of abdomen and pelvis found diverticulitis involving 5 cm section of descending colon with moderate pericolonic fat stranding without evidence for abscess or perforation Patient does not meet sepsis criteria: Leukocytosis, but no tachycardia, tachypnea, or fever Patient started on Zosyn in the ED, will continue for now, started 06/27/2023 Analgesics for pain management Antiemetics NPO for now, advance diet as tolerated Patient received over 4 L of IVF in ED, will hold off on additional IVF for now General surgery consult d/t recurrent diverticulitis Follow BMP Moderate persistent asthma Patient currently only on albuterol rescue inhaler, though uses multiple times daily Needs to follow-up outpatient with PCP for maintenance inhaler Abnormal CT findings CT of abdomen pelvis also found 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 Narayan DVT Prophylaxis: Lovenox Pt will require a hospitalization of at least two nights for treatment of?acute diverticulitis. Given that patient has intractable pain and is unable to tolerate anything p.o., patient will need hospitalization for administration of IV antibiotics, IVF as necessary, IV antiemetics, and IV analgesics. Quality Stroke Does the patient have a stroke diagnosis?: No VTE Prior VTE?: No VTE Risk Level:: Medical - moderate - high VTE Device Contraindication: Treatment Not Indicated VTE Drug Contraindication: N/A - Med Ordered
--- NOTE | 2023-06-27 21:25 | PHA.MEDREC ---
Pharmacy Consult ? Medication Reconciliation Pharmacy has completed the medication reconciliation. Patient's confirmed meds. Karmen Tomas, QuintinD
[2023-06-27] MEDS: Enoxaparin Sodium 40 MG/0.4 ML SYRINGE SUBCUT (22:16)
[2023-06-27 22:19] VITALS: BP 112/70; PULSE 79; RESP 16; O2SAT 95
[2023-06-27 23:11] VITALS: BP 117/73; PULSE 76; RESP 16; TEMP 36.6; O2SAT 97
[2023-06-28] MEDS: 0.9 % Sodium Chloride Flush 3 ML SYRINGE IVFLUSH ×2 (00:40→07:10)
[2023-06-28] MEDS: Morphine Sulfate 4 MG/ML CARTRIDGE IVPUSH ×3 (00:43→09:21)
[2023-06-28 04:10] VITALS: BP 111/75; PULSE 72; RESP 16; TEMP 37.1; O2SAT 95
[2023-06-28] MEDS: Piperacillin Sodium/Tazobactam 3.375 GM in 0.9 % Sodium Chloride 50 ML IV ×4 (05:07→22:29)
[2023-06-28 05:17] LABS: Hemoglobin 14.9 g/dl (14.0-18.0); Mean Corpuscular HGB Conc 33.1 g/dl (31.0-36.0); Mean Corpuscular Hemoglobin 28.8 pg (27.0-33.0); Mean Corpuscular Volume 86.9 fL (80.0-98.0); Mean Platelet Volume 11.1 fL (9.4-12.4); Platelet Count 153 X10*3/uL (160-400); Red Blood Count 5.18 X10*6/uL (4.60-5.80); Red Cell Distribution Width 13.1 % (11.0-16.0)
[2023-06-28 05:40] LABS: Anion Gap 13 (12-20); Blood Urea Nitrogen 12 mg/dL (9-16); Calcium 8.7 mg/dL (8.4-10.2); Carbon Dioxide 24 mmol/L (22-29); Chloride 102 mmol/L (96-108); Creatinine Clr Calc Pharmacy 134.8; Estimated Glomerular Filt Rate > 60; Glucose Random 99 mg/dL (60-115); Potassium 4.4 mmol/L (3.3-5.1); Sodium 135 mmol/L (135-145)
[2023-06-28 06:50] VITALS: BP 106/73; PULSE 75; RESP 16; TEMP 36.8; O2SAT 97
[2023-06-28] MEDS: ondansetron HCL 4 MG/2 ML VIAL IVPUSH (07:10)
[2023-06-28] MEDS: Acetaminophen 325 MG TABLET 650 MG PO ×3 (07:14→22:26)
--- NOTE | 2023-06-28 07:50 | PM.CNGS ---
History of Present Illness Consult details Consult date: 06/28/23 Requesting physician: Lavinia Morocho Narrative: 58-year-old male patient presenting with complaints of left flank abdominal pain. The pain began approximately 2 days ago increased in severity. He reports symptoms of bloating and constipation along with the abdominal pain. Pain was associated with fever and nausea without vomiting. He reports 2 previous episodes of similar pain the 1st treated as an outpatient with oral antibiotics. The 2nd episode required admission to [facility] [place] for approximately 4 days for IV antibiotics. This occurred approximately 2 years ago with no symptoms during the intervening time. The current episode was associated with pain 10/10 in severity. Workup in the emergency department revealed an elevated WBC. CT abdomen and pelvis was significant for uncomplicated sigmoid diverticulitis. He is admitted to the hospitalist service for IV antibiotics. This morning he continues to have pain in the range of 5 to 6/10. The pain increases with movement. Review of Systems Review of Systems: Yes all other systems are reviewed and are negative Constitutional: Constitutional: Denies chills, Reports fever(s), Denies headache(s), Denies poor appetite and Denies weakness ENT: Denies headache(s) Cardiovascular: Cardiovascular: Denies chest pain, Denies irregular heart rhythm, Denies palpitations and Denies dyspnea Respiratory: Respiratory: Denies cough, Denies excessive phlegm production and Denies dyspnea Gastrointestinal: Gastrointestinal: Reports abdominal pain, Reports bloating, Reports change in bowel habits, Reports constipation, Denies heartburn, Denies diarrhea, Reports nausea and Denies vomiting Genitourinary: Genitourinary: Denies difficulty urinating and Denies urinary frequency Musculoskeletal: Musculoskeletal: Denies back pain, Denies muscle weakness and Denies numbness Integumentary/Breasts: Skin/Breast: Denies changing lesions and Denies unusual bruising Neurologic: Denies headache(s), Denies numbness, Denies paresthesias and Denies weakness Psychiatric: Psychiatric: Denies anxiety and Denies depression Endocrine: Endocrine: Denies palpitations Hematologic/Lymphatic: Hematologic/Lymphatic: Denies lymphadenopathy [facility] Past Medical History Medical History Moderate persistent asthma Diverticulosis Social History Social History Alcohol intake: never Smoked in Last 30 Days: No Use of substances other than those prescribed or required for medical reasons: No Advance Directives: No Advance Directives Information Provided: Yes Meds Allergies Allergy/AdvReac Type Severity Reaction Status Date / Time No Known Allergies Allergy Verified 09/05/20 10:01 Active Medications: Current Medications Acetaminophen (Acetaminophen 325 Mg Tablet) 650 mg PO Q6H PRN PRN Reason: Pain, Mild (Pain Scale 1-3) Last Admin: 06/28/23 07:14 Dose: 650 mg Albuterol Sulfate (Albuterol Sulfate 90 Mcg 8 Gm Inhaler) 2 puff INHALE Q6H PRN PRN Reason: wheezing Benzonatate (Benzonatate 100 Mg Capsule) 100 mg PO TID PRN PRN Reason: Cough Docusate Sodium (Docusate Sodium 100 Mg Capsule) 100 mg PO DAILY PRN PRN Reason: Constipation Enoxaparin Sodium (Enoxaparin Sodium 40 Mg/0.4 Ml Syringe) 40 mg SUBCUT Q24H [facility] Last Admin: 06/27/23 22:16 Dose: 40 mg Piperacillin Sod/Tazobactam (Sod 3.375 gm/ Sodium Chloride) 50 mls @ 100 mls/hr IV Q6H [facility] Last Infusion: 06/28/23 05:37 Dose: Infused Melatonin (Melatonin 3 Mg Tablet) 6 mg PO BEDTIME PRN PRN Reason: Insomnia Morphine Sulfate (Morphine Sulfate 4 Mg/Ml Cartridge) 4 mg IVPUSH Q4H PRN; Protocol PRN Reason: Pain, Severe (Pain Scale 7-10) Last Admin: 06/28/23 05:07 Dose: 4 mg Ondansetron HCl (Ondansetron Hcl 4 Mg/2 Ml Vial) 4 mg IVPUSH Q8H PRN PRN Reason: Nausea and Vomiting Last Admin: 06/28/23 07:10 Dose: 4 mg Sodium Chloride (0.9 % Sodium Chloride Flush 3 Ml Syringe) 3 ml IVFLUSH QSHIFT [facility] Last Admin: 06/28/23 07:10 Dose: 3 ml Vitamin D (Cholecalciferol (Vitamin D3) 25 Mcg Tablet) 25 mcg PO DAILY [facility] Home Medications Medication Instructions Recorded Confirmed Last Taken Type acetaminophen 325 mg tablet 650 mg PO Q6H PRN Pain 06/27/23 06/27/23 Unknown History (Tylenol) albuterol sulfate 90 mcg/actuation 2 puff inhalation Q6H PRN wheezing 06/27/23 06/27/23 Unknown History aerosol inhaler (Ventolin HFA) cholecalciferol (vitamin D3) 25 25 mcg PO DAILY 06/27/23 06/27/23 Unknown History mcg (1,000 unit) tablet (Vitamin D3) Physical Exam Vital Signs: Vital Signs: Last Vital Signs Temp 98.2 F 06/28/23 06:50 Pulse 75 06/28/23 06:50 Resp 16 06/28/23 06:50 BP 106/73 06/28/23 06:50 Pulse Ox 97 06/28/23 06:50 O2 Del Method Room Air 06/28/23 06:50 BMI result Body Mass Index 43.0 Const: General: cooperative and no acute distress Nutritional Appearance: well nourished Orientation/consciousness: patient oriented x3 Limitations: no limitations HEENT: Head: Yes normocephalic and Yes atraumatic Ears: hearing grossly normal bilaterally Resp: Effort & Inspection: normal respiratory effort, no audible wheezes, no cough and no respiratory distress Cardio: Jugular venous distension: no JVD GI: Inspection: Yes normal to inspection Palpation (GI): Soft to palpation, Tenderness to palpation present (GI) in the LLQ, no guarding, not rigid and no masses Percussion: Yes normal to percussion Auscultation: normal bowel sounds Skin: Other: Warm, dry, no rash Neuro: General: patient oriented x3 Extrem: General: Yes no clubbing, cyanosis or edema Results Labs 06/28/23 04:43 06/28/23 04:43 Labs: Abnormal lab results 06/27/23 06/27/23 06/28/23 Range/Units 14:21 17:56 04:43 WBC 15.9 H 15.0 H (4.8-10.8) X10*3/uL Plt Count 144 L 153 L (160-400) X10*3/uL Neut % (Auto) 78.0 H (45-73) % Lymph % (Auto) 9.5 L (20-40) % [place] # (Auto) 1.6 H (0.1-1.2) X10*3/uL Abs Immat Gran (auto) 0.07 H (0.00-0.03) X10*3/uL Absolute Neuts (auto) 12.4 H (2.0-8.3) x10*3/uL Anion Gap 11 L (12-20) Lipase 283 H (8-78) U/L Ur Specific [place] >= 1.030 H (1.005-1.025) Short CBC 06/27/23 06/28/23 Range/Units 14:21 04:43 WBC 15.9 H 15.0 H (4.8-10.8) X10*3/uL Hgb 16.3 14.9 (14.0-18.0) g/dl Hct 49.1 45.0 (42.0-52.0) % Plt Count 144 L 153 L (160-400) X10*3/uL BMP 06/27/23 06/28/23 14:21 04:43 Sodium 138 135 Potassium 4.3 4.4 Chloride 105 102 Carbon Dioxide 26 24 BUN 16 12 Creatinine 0.85 0.85 Calcium 9.3 8.7 D Liver Function 06/27/23 Range/Units 14:21 Total Bilirubin 1.0 (0.0-1.0) mg/dL AST 20 (5-37) U/L ALT 25 (0-40) U/L Alkaline Phosphatase 65 (39-117) U/L Albumin 4.1 (3.5-5.0) g/dL Urine 06/27/23 Range/Units 17:56 Urine Color Yellow Urine Appearance Clear Urine pH 6.5 (5.0-9.0) Ur Specific [place] >= 1.030 H (1.005-1.025) Urine Protein Negative (Neg-Trace) mg/dL Urine Glucose (UA) Negative (Negative) mg/dL All other labs normal. Imaging Abdomen CT scan report/results: image reviewed Assessment and Plan (1) Diverticulitis: Status: Acute Plan 58-year-old female patient presenting with complaints of abdominal pain in the left flank and left lower quadrant with a prior history of sigmoid diverticulitis. Current episode is almost as severe his last episode 2 years ago. On examination the patient is tender in the left flank but without peritoneal signs. Agree with current management with IV antibiotics. I discussed elective partial colectomy as a way to avoid current episodes of diverticulitis in the possible need for colostomy. No surgical intervention is required at this time. He will consider his options. I will follow along during his hospitalization. Procedures Date of Service Date of Service: 06/28/23
--- NOTE | 2023-06-28 07:57 | PC.NURSE ---
patient stated this morning that he had headache 7/10 pain, patient medicated with prn tylenol.
[2023-06-28 09:09] VITALS: BP 131/62; PULSE 64; RESP 20; TEMP 36.3; O2SAT 94
[2023-06-28] MEDS: Cholecalciferol (Vitamin D3) 25 MCG TABLET PO (09:22)
--- NOTE | 2023-06-28 09:38 | MHC.CM.PN ---
CM met with patient and at bedside. Patient provides verbal consent to speak with . Patient is from home w/ and adult sons. Functionally independent. No services or DME. PCP: Sherley Garcia MD @ [place] No HCP. CM provided education and offered assistance. Patient will consider, but refuses at this time. DP: Goal is home self care. Son to transport. CM will continue to follow for dc needs.
[2023-06-28] MEDS: Lactated Ringers 1,000 ML 100 ML IVCONT ×2 (09:41→20:36)
[2023-06-28 09:43] VITALS: BMI 43.0
--- NOTE | 2023-06-28 15:00 | HO.PM.IMPN ---
Subjective Subjective Date of Service: 06/29/23 Interval History: Has abdominal pain and nausea Review of Systems Patient says abdominal pain is somewhat better but still feel nauseated Unable to tolerate food No fever Physical Exam Vital Signs: Vital Signs: Last Vital Signs Temp 97.3 F 06/28/23 09:09 Pulse 64 06/28/23 09:09 Resp 20 06/28/23 09:09 BP 131/62 06/28/23 09:09 Pulse Ox 94 06/28/23 09:09 O2 Del Method Room Air 06/28/23 09:09 BMI result Body Mass Index 43.0 Appearance: Alert.? Oriented X3.? cvs: [id number], [id number] , no murmur res: clear to auscultation ,no rhonchii or wheezing abd: no rebound or guarding ,LLQ pain, bs present. ext pulses present , no cyanosis . neuro: axo3 , nonfocal. Objective Data Active Medications Acetaminophen (Acetaminophen 325 Mg Tablet) 650 mg PO Q6H PRN PRN Reason: Pain, Mild (Pain Scale 1-3) Last Admin: 06/28/23 13:59 Dose: 650 mg Documented By: PINEDA Albuterol Sulfate (Albuterol Sulfate 90 Mcg 8 Gm Inhaler) 2 puff INHALE Q6H PRN PRN Reason: wheezing Benzonatate (Benzonatate 100 Mg Capsule) 100 mg PO TID PRN PRN Reason: Cough Docusate Sodium (Docusate Sodium 100 Mg Capsule) 100 mg PO DAILY PRN PRN Reason: Constipation Enoxaparin Sodium (Enoxaparin Sodium 40 Mg/0.4 Ml Syringe) 40 mg SUBCUT Q24H [facility] Last Admin: 06/27/23 22:16 Dose: 40 mg Documented By: ALEJANDRA Piperacillin Sod/Tazobactam (Sod 3.375 gm/ Sodium Chloride) 50 mls @ 100 mls/hr IV Q6H [facility] Last Infusion: 06/28/23 11:25 Dose: Infused Documented By: PINEDA Lactated Ringer's (Lr) 1,000 mls @ 100 mls/hr IVCONT .Q10H [facility] Last Admin: 06/28/23 09:41 Dose: 100 mls/hr Documented By: PINEDA Melatonin (Melatonin 3 Mg Tablet) 6 mg PO BEDTIME PRN PRN Reason: Insomnia Morphine Sulfate (Morphine Sulfate 4 Mg/Ml Cartridge) 4 mg IVPUSH Q4H PRN; Protocol PRN Reason: Pain, Severe (Pain Scale 7-10) Last Admin: 06/28/23 09:21 Dose: 4 mg Documented By: PINEDA Ondansetron HCl (Ondansetron Hcl 4 Mg/2 Ml Vial) 4 mg IVPUSH Q8H PRN PRN Reason: Nausea and Vomiting Last Admin: 06/28/23 07:10 Dose: 4 mg Documented By: GELY Sodium Chloride (0.9 % Sodium Chloride Flush 3 Ml Syringe) 3 ml IVFLUSH QSHIFT [facility] Last Admin: 06/28/23 07:10 Dose: 3 ml Documented By: GELY Vitamin D (Cholecalciferol (Vitamin D3) 25 Mcg Tablet) 25 mcg PO DAILY [facility] Last Admin: 06/28/23 09:22 Dose: 25 mcg Documented By: PINEDA Labs 06/28/23 04:43 06/28/23 04:43 Labs: Laboratory Results - last 24 hr 06/27/23 06/27/23 06/27/23 14:21 16:46 17:56 MCV MCH MCHC RDW Plt Count MPV Absolute Nucleated RBC Nucleated RBC % (auto) Anion Gap Estim Creat Clear Calc Estimated GFR Random Glucose Lactic Acid 1.2 Calcium Triglycerides 121 Lipase 283 H Urine Color Yellow Urine Appearance Clear Urine pH 6.5 Ur Specific [place] >= 1.030 H Urine Protein Negative Urine Glucose (UA) Negative Urine Ketones Negative Urine Blood Negative Urine Nitrite Negative Ur Leukocyte Esterase Negative 06/28/23 04:43 MCV 86.9 MCH 28.8 MCHC 33.1 RDW 13.1 Plt Count 153 L MPV 11.1 Absolute Nucleated RBC 0.000 Nucleated RBC % (auto) 0.0 Anion Gap 13 Estim Creat Clear Calc 134.8 Estimated GFR > 60 Random Glucose 99 Lactic Acid Calcium 8.7 D Triglycerides Lipase Urine Color Urine Appearance Urine pH Ur Specific [place] Urine Protein Urine Glucose (UA) Urine Ketones Urine Blood Urine Nitrite Ur Leukocyte Esterase Assessment and Plan (1) Diverticulitis: Status: Acute Plan 58-year-old male with a PMH significant for?diverticulitis (2020 and 2021) and moderate persistent asthma who presents to the ED with?severe left-sided abdominal pain since last night. Pt will be admitted to the hospital for treatment and further evaluation of acute on chronic diverticulitis. Acute diverticulitis Patient with lower left sided abdominal pain since last night CT of abdomen and pelvis found diverticulitis involving 5 cm section of descending colon with moderate pericolonic fat stranding without evidence for abscess or perforation Patient does not meet sepsis criteria: Leukocytosis, but no tachycardia, tachypnea, or fever Bowel rest, IV fluid, IV Zosyn, surgery evaluation-continue current antibiotics and supportive care. 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 DVT Prophylaxis: Lovenox ongoing hospitalization need for treatment of?acute diverticulitis. Given that patient has intractable pain and is unable to tolerate anything p.o., patient will need hospitalization for administration of IV antibiotics, IVF as necessary, IV antiemetics, and IV analgesics. Quality Stroke Does the patient have a stroke diagnosis?: No VTE Prior VTE?: No VTE Risk Level:: Medical - moderate - high VTE Device Contraindication: Treatment Not Indicated VTE Drug Contraindication: N/A - Med Ordered
[2023-06-28 15:48] VITALS: BP 110/67; PULSE 63; RESP 18; TEMP 36.6; O2SAT 94
[2023-06-28 19:19] VITALS: BP 115/67; PULSE 64; RESP 18; TEMP 36.6; O2SAT 96
[2023-06-28] MEDS: Enoxaparin Sodium 40 MG/0.4 ML SYRINGE SUBCUT (22:26)
[2023-06-29 03:36] VITALS: BP 139/86; PULSE 63; RESP 16; TEMP 36.3; O2SAT 95
[2023-06-29] MEDS: Acetaminophen 325 MG TABLET 650 MG PO ×3 (03:48→17:22)
[2023-06-29] MEDS: Piperacillin Sodium/Tazobactam 3.375 GM in 0.9 % Sodium Chloride 50 ML IV ×4 (04:38→22:47)
[2023-06-29 07:14] VITALS: BP 131/72; PULSE 60; RESP 20; TEMP 36.1; O2SAT 96
[2023-06-29] MEDS: Cholecalciferol (Vitamin D3) 25 MCG TABLET PO (08:56)
[2023-06-29] MEDS: Lactated Ringers 1,000 ML 100 ML IVCONT ×2 (10:27→18:37)
--- NOTE | 2023-06-29 10:56 | HO.PM.IMPN ---
Subjective Subjective Date of Service: 06/29/23 Interval History: Has abdominal pain and nausea Review of Systems Patient says abdominal pain is somewhat better encourage to try clear liquids No fever Physical Exam Vital Signs: Vital Signs: Last Vital Signs Temp 96.9 F 06/29/23 07:14 Pulse 60 06/29/23 07:14 Resp 20 06/29/23 07:14 BP 131/72 06/29/23 07:14 Pulse Ox 96 06/29/23 07:14 O2 Del Method Room Air 06/29/23 07:14 BMI result Body Mass Index 43.0 Appearance: Alert.? Oriented X3.? cvs: [id number], [id number] , no murmur res: clear to auscultation ,no rhonchii or wheezing abd: no rebound or guarding ,LLQ pain, bs present. ext pulses present , no cyanosis . neuro: axo3 , nonfoca Objective Data Active Medications Acetaminophen (Acetaminophen 325 Mg Tablet) 650 mg PO Q6H PRN PRN Reason: Pain, Mild (Pain Scale 1-3) Last Admin: 06/29/23 10:51 Dose: 650 mg Documented By: DARYL Albuterol Sulfate (Albuterol Sulfate 90 Mcg 8 Gm Inhaler) 2 puff INHALE Q6H PRN PRN Reason: wheezing Benzonatate (Benzonatate 100 Mg Capsule) 100 mg PO TID PRN PRN Reason: Cough Docusate Sodium (Docusate Sodium 100 Mg Capsule) 100 mg PO DAILY PRN PRN Reason: Constipation Enoxaparin Sodium (Enoxaparin Sodium 40 Mg/0.4 Ml Syringe) 40 mg SUBCUT Q24H [facility] Last Admin: 06/28/23 22:26 Dose: 40 mg Documented By: CASTILMary Piperacillin Sod/Tazobactam (Sod 3.375 gm/ Sodium Chloride) 50 mls @ 100 mls/hr IV Q6H [facility] Last Admin: 06/29/23 10:52 Dose: 100 mls/hr Documented By: DARYL Lactated Ringer's (Lr) 1,000 mls @ 100 mls/hr IVCONT .Q10H [facility] Last Infusion: 06/29/23 10:53 Dose: 0 mls/hr Documented By: DARYL Melatonin (Melatonin 3 Mg Tablet) 6 mg PO BEDTIME PRN PRN Reason: Insomnia Morphine Sulfate (Morphine Sulfate 4 Mg/Ml Cartridge) 4 mg IVPUSH Q4H PRN; Protocol PRN Reason: Pain, Severe (Pain Scale 7-10) Last Admin: 06/28/23 09:21 Dose: 4 mg Documented By: PINEDA Ondansetron HCl (Ondansetron Hcl 4 Mg/2 Ml Vial) 4 mg IVPUSH Q8H PRN PRN Reason: Nausea and Vomiting Last Admin: 06/28/23 07:10 Dose: 4 mg Documented By: GELY Sodium Chloride (0.9 % Sodium Chloride Flush 3 Ml Syringe) 3 ml IVFLUSH QSHIFT [facility] Last Admin: 06/29/23 07:47 Dose: Not Given Documented By: DARYL Non-Admin Reason: IV Running Vitamin D (Cholecalciferol (Vitamin D3) 25 Mcg Tablet) 25 mcg PO DAILY [facility] Last Admin: 06/29/23 08:56 Dose: 25 mcg Documented By: DARYL Labs 06/28/23 04:43 06/28/23 04:43 Microbiology Microbiology Results: Microbiology 06/27/23 16:47 Blood Culture - Preliminary Blood - Venous No growth after 24 hours. 06/27/23 16:46 Blood Culture - Preliminary Blood - Venous No growth after 24 hours. Assessment and Plan (1) Diverticulitis: Status: Acute Plan 58-year-old male with a PMH significant for?diverticulitis (2020 and 2021) and moderate persistent asthma who presents to the ED with?severe left-sided abdominal pain since last night. Pt will be admitted to the hospital for treatment and further evaluation of acute on chronic diverticulitis. Acute diverticulitis Patient with lower left sided abdominal pain since last night CT of abdomen and pelvis found diverticulitis involving 5 cm section of descending colon abd somewhat improving,leucocytosis minimal improving start clear liquids,IV Zosyn, surgery evaluation-continue current antibiotics and supportive care. 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 DVT Prophylaxis: Lovenox ongoing hospitalization need for treatment of?acute diverticulitis. Given that patient has intractable pain and is unable to tolerate anything p.o., patient will need hospitalization for administration of IV antibiotics, IVF as necessary, IV antiemetics, and IV analgesics. Quality Stroke Does the patient have a stroke diagnosis?: No VTE Prior VTE?: No VTE Risk Level:: Medical - moderate - high VTE Device Contraindication: Treatment Not Indicated VTE Drug Contraindication: N/A - Med Ordered
[2023-06-29 15:02] VITALS: BP 122/77; PULSE 57; RESP 16; TEMP 36.2; O2SAT 97
--- NOTE | 2023-06-29 15:10 | PM.PNGS ---
Subjective Subjective Date of Service: 06/29/23 Interval history: pt feeling better less pain no fever Physical Exam Vital Signs: Vital Signs: Last Vital Signs Temp 97.2 F 06/29/23 15:02 Pulse 57 06/29/23 15:02 Resp 16 06/29/23 15:02 BP 122/77 06/29/23 15:02 Pulse Ox 97 06/29/23 15:02 O2 Del Method Room Air 06/29/23 15:02 BMI result Body Mass Index 43.0 Const: General: cooperative, healthy appearing, comfortable and no acute distress Orientation/consciousness: patient oriented x3 GI: Other: soft tender mildly left lower flank/side area Neuro: General: patient oriented x3 Objective Data Active Medications Acetaminophen (Acetaminophen 325 Mg Tablet) 650 mg PO Q6H PRN PRN Reason: Pain, Mild (Pain Scale 1-3) Last Admin: 06/29/23 10:51 Dose: 650 mg Documented By: DARYL Albuterol Sulfate (Albuterol Sulfate 90 Mcg 8 Gm Inhaler) 2 puff INHALE Q6H PRN PRN Reason: wheezing Benzonatate (Benzonatate 100 Mg Capsule) 100 mg PO TID PRN PRN Reason: Cough Docusate Sodium (Docusate Sodium 100 Mg Capsule) 100 mg PO DAILY PRN PRN Reason: Constipation Enoxaparin Sodium (Enoxaparin Sodium 40 Mg/0.4 Ml Syringe) 40 mg SUBCUT Q24H [facility] Last Admin: 06/28/23 22:26 Dose: 40 mg Documented By: CASTILMary Piperacillin Sod/Tazobactam (Sod 3.375 gm/ Sodium Chloride) 50 mls @ 100 mls/hr IV Q6H [facility] Last Infusion: 06/29/23 11:40 Dose: Infused Documented By: DARYL Lactated Ringer's (Lr) 1,000 mls @ 100 mls/hr IVCONT .Q10H [facility] Last Infusion: 06/29/23 12:57 Dose: 100 mls/hr Documented By: DARYL Melatonin (Melatonin 3 Mg Tablet) 6 mg PO BEDTIME PRN PRN Reason: Insomnia Morphine Sulfate (Morphine Sulfate 4 Mg/Ml Cartridge) 4 mg IVPUSH Q4H PRN; Protocol PRN Reason: Pain, Severe (Pain Scale 7-10) Last Admin: 06/28/23 09:21 Dose: 4 mg Documented By: PINEDA Ondansetron HCl (Ondansetron Hcl 4 Mg/2 Ml Vial) 4 mg IVPUSH Q8H PRN PRN Reason: Nausea and Vomiting Last Admin: 06/28/23 07:10 Dose: 4 mg Documented By: GELY Sodium Chloride (0.9 % Sodium Chloride Flush 3 Ml Syringe) 3 ml IVFLUSH QSHIFT [facility] Last Admin: 06/29/23 07:47 Dose: Not Given Documented By: DARYL Non-Admin Reason: IV Running Vitamin D (Cholecalciferol (Vitamin D3) 25 Mcg Tablet) 25 mcg PO DAILY [facility] Last Admin: 06/29/23 08:56 Dose: 25 mcg Documented By: DARYL Labs 06/28/23 04:43 06/28/23 04:43 Microbiology Microbiology Results: Microbiology 06/27/23 16:47 Blood Culture - Preliminary Blood - Venous No growth after 24 hours. 06/27/23 16:46 Blood Culture - Preliminary Blood - Venous No growth after 24 hours. Procedures Date of Service Date of Service: 06/29/23 Progress Note: A&P Assessment and plan (1) Diverticulitis: Status: Acute Assessment and Plan: HD#2 noncomplicated diverticulitis - doing well and improving - pt would benefit from weight loss and then plan for elective segmental colectomy. Med team following other issues. He understands and agrees with the plan Time Spent With Patient Time: Total time managing care of this patient today ____ minutes. Quality Stroke Does the patient have a stroke diagnosis?: No VTE Prior VTE?: No VTE Risk Level:: Medical - moderate - high VTE Device Contraindication: Treatment Not Indicated VTE Drug Contraindication: N/A - Med Ordered
[2023-06-29 19:49] VITALS: BP 132/73; PULSE 59; RESP 18; TEMP 36.5; O2SAT 97
[2023-06-29] MEDS: Enoxaparin Sodium 40 MG/0.4 ML SYRINGE SUBCUT (21:42)
[2023-06-30] MEDS: Lactated Ringers 1,000 ML 100 ML IVCONT (03:01)
[2023-06-30 03:21] VITALS: BP 134/79; PULSE 52; RESP 16; TEMP 36.3; O2SAT 96
[2023-06-30] MEDS: Acetaminophen 325 MG TABLET 650 MG PO (04:21)
[2023-06-30] MEDS: Piperacillin Sodium/Tazobactam 3.375 GM in 0.9 % Sodium Chloride 50 ML IV ×2 (04:48→11:43)
[2023-06-30] MEDS: 0.9 % Sodium Chloride Flush 3 ML SYRINGE IVFLUSH (07:42)
[2023-06-30 07:46] VITALS: BP 129/65; PULSE 55; RESP 18; TEMP 36.1; O2SAT 95
[2023-06-30 09:34] LABS: Baso%MD 0.7 %; Eos%MD 8.6 %; Hematocrit 45.9 % (42.0-52.0); Hemoglobin 15.5 g/dl (14.0-18.0); IG%MD 0.4 %; Lymph%MD 19.3 %; Mean Corpuscular HGB Conc 33.8 g/dl (31.0-36.0); Mean Corpuscular Hemoglobin 28.4 pg (27.0-33.0); Mean Corpuscular Volume 84.1 fL (80.0-98.0); Mean Platelet Volume 10.9 fL (9.4-12.4); Mono%MD 10.9 %; Neut%MD 60.1 %; Platelet Count 173 X10*3/uL (160-400); Red Blood Count 5.46 X10*6/uL (4.60-5.80); Red Cell Distribution Width 12.4 % (11.0-16.0)
[2023-06-30] MEDS: Cholecalciferol (Vitamin D3) 25 MCG TABLET PO (09:37)
[2023-06-30 10:56] LABS: Band Neutrophils Percent 1 % (3-5); Basophils Abs Manual 0.1 X10*3/uL (0.0-0.2); Basophils Percent Manual 2 % (0-2); Eosinophils Absolute Manual 0.4 X10*3/uL (0.0-0.4); Eosinophils Percent Manual 6 % (0-4); Lymphocytes Absolute Manual 1.1 X10*3/uL (1.2-4.9); Lymphocytes Percent Manual 15 % (20-40); Monocytes Absolute Manual 0.3 X10*3/uL (0.1-1.2); Monocytes Percent Manual 4 % (2-11); Neutrophils Absolute Manual 5.1 X10*3/uL (2.0-8.3); Neutrophils Percent Manual 72 % (45-73); Platelet Estimate NORMAL (NORMAL); Platelet Morphology Comment NORMAL; RBC Morphology NORMAL
--- NOTE | 2023-06-30 11:59 | P.DS_ITS ---
DS: Providers Provider Date of Service: 06/30/23 Date of admission: 06/27/23 21:33 Date of discharge: 06/30/23 Primary care physician: Sherley Garcia Consults: 06/27/23 21:45 Consult to General Surgery Routine Consulting Provider: [facility] General Surgeons Reason for consultation: Recurrent diverticulitis Attending physician on discharge: Lavinia Morocho Discharging clinician: Lavinia Morocho DS: Diagnosis Discharge Diagnosis (1) Diverticulitis: Status: Acute DS: Summary Status at Discharge Cognitive/behavioral status at discharge: 58-year-old male with a PMH significant for?diverticulitis (2020 and 2021) and moderate persistent asthma who presents to the ED with?severe left-sided abdominal pain since last night. Patient states symptoms began approximately 22:00 when he developed severe, sharp and stabbing lower left-sided abdominal pain. Symptoms worsened this morning and patient thus presented to the ED for further evaluation. Denies any nausea or vomiting. Has had some constipation in the past few days; last bowel movement was earlier today when he went just ?a little bit? and stool was soft and watery. No hematochezia or melena. Patient's pain worsens with movement or deep breathing. Patient reports two previous episodes of diverticulitis, with the first one on 09/05/2020. Was treated here at [facility] and sent home from the ED on oral antibiotics. The 2nd episode occurred approximately 1 year later and was much more severe. Patient then went to [facility] and was hospitalized for 4 days. Patient reports current episode is somewhere in the middle, though does endorse significant 10/10 pain. Denies chest pain/pressure, palpitations. No fever, chills. Denies shortness of breath. In the ED pt was initially mildly hypertensive at 147/111 and had elevated temperature of 99.6 degrees, vitals otherwise WNL. Labs were significant for leukocytosis of 15.9 and lipase 283, otherwise grossly unremarkable. Stable H&H. No electrolyte imbalances. Renal and hepatic function WNL. Lactic acid WNL at 1.2. UA negative for UTI. CT of abdomen and pelvis found diverticulitis involving 5 cm section of descending colon with moderate pericolonic fat stranding without evidence for abscess or perforation. 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 Pt was treated with ondansetron, morphine, Dilaudid, IVF, and Zosyn. Pt will be admitted to the hospital for treatment and further evaluation of acute on chronic diverticulitis. Hospital course: Patient was admitted to the hospital because of abdominal pain: Found to have leukocytosis, CT abdomen showed acute descending colon diverticulitis: Patient was started on IV antibiotics, blood cultures sent, placed on bowel rest, IV hydration, IV pain medication: Patient seems to be improved significantly with supportive care, seen by surgery: Recommended to continue antibiotics, patient is to follow-up out patiently with surgery. Patient will go home with p.o. Augmentin 875 mg p.o. b.i.d. for 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 plan: Patient will go home with p.o. Augmentin 875 mg p.o. b.i.d. for 5 more days.Follow-up with surgery outpatient. 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 Above management discussed with the patient in detail length he understand and agreement of above plan, time spent 50 minute. Time Attestation Discharge coordination time: Greater than 30 minutes Quality: Safe Use of Opioids Does Pt have an Active Cancer Diagnosis on the Problem List?: No Quality: Stroke Does the patient have a stroke diagnosis?: No Physical Exam Vital Signs: Vital Signs: Last Vital Signs Temp 96.9 F 06/30/23 07:46 Pulse 55 06/30/23 07:46 Resp 18 06/30/23 07:46 BP 129/65 06/30/23 07:46 Pulse Ox 95 06/30/23 07:46 O2 Del Method Room Air 06/30/23 07:46 BMI result Body Mass Index 43.0 Appearance: Alert.? Oriented X3.? not in distress.? cvs: rrr, [id number] . res: clear to auscultation ,no rhonchii or wheezing abd: no rebound or guarding ,nt, bs present. ext pulses present , no cyanosis . neuro: axo3 , nonfocal. DS: Data Data Completed and Pending Labs on day of discharge: Laboratory Results - last 24 hr 06/30/23 09:18 WBC 7.0 RBC 5.46 Hgb 15.5 Hct 45.9 MCV 84.1 MCH 28.4 MCHC 33.8 RDW 12.4 Plt Count 173 MPV 10.9 Absolute Nucleated RBC 0.000 Nucleated RBC % (auto) 0.0 Neutrophils % (Manual) 72 Band Neutrophils % 1 L Lymphocytes % (Manual) 15 L Monocytes % (Manual) 4 Eosinophils % (Manual) 6 H Basophils % (Manual) 2 Abs Neuts (Manual) 5.1 Lymphocytes # (Manual) 1.1 L Monocytes # (Manual) 0.3 Eosinophils # (Manual) 0.4 Basophils # (Manual) 0.1 Platelet Estimate NORMAL Plt Morphology Comment NORMAL RBC Morphology NORMAL Preliminary micro results at discharge 06/27/23 16:46 Blood Culture - Preliminary Blood - Venous No growth after 48 hours. 06/27/23 16:47 Blood Culture - Preliminary Blood - Venous No growth after 48 hours. Imaging Chest x-ray: Radiologist's impression: ITS Impressions Abdomen/Pelvis CT 06/27/23 17:34 IMPRESSION: 1. Diverticulitis involving approximately 5 cm section of the descending colon. Moderate pericolonic fat stranding without demonstrated discrete extraluminal fluid collection or gas. 2. Horseshoe kidney with nonobstructive nephrolithiasis. 3. 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 4. 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 Discharge Plan Discharge Anticipated Discharge Date/Time: 06/30/23 11:53 Patient Disposition: Home, Self-Care Discharge Diagnosis: Acute diverticulitis Referrals: Sylvain Naylor MD [Physician] - 1 Week Sherley Garcia [Primary Care Provider] - 1 Week Discharge Medications: New amoxicillin-pot clavulanate 875-125 mg tablet 1 tab PO BID Qty: 10 0RF Continued acetaminophen [Tylenol] 325 mg Tablet 650 mg PO Q6H PRN (Reason: Pain) albuterol sulfate [Ventolin HFA] 90 mcg/actuation HFA aerosol inhaler 2 puff inhalation Q6H PRN (Reason: wheezing) cholecalciferol (vitamin D3) [Vitamin D3] 25 mcg (1,000 unit) tablet 25 mcg PO DAILY Discharge Orders: Discharge Order (Routine); Ordered 06/30/23 Ordered By: Lavinia Morocho Diet: Advance to usual diet Activity on Discharge: As tolerated Stand Alone Forms: Patient Portal Discharge page Care Plan Goals: Patient was admitted to the hospital because of abdominal pain: Found to have leukocytosis, CT abdomen showed acute descending colon diverticulitis: Patient was started on IV antibiotics, blood cultures sent, placed on bowel rest, IV hydration, IV pain medication: Patient seems to be improved significantly with supportive care, seen by surgery: Recommended to continue antibiotics, patient is to follow-up out patiently with surgery. Patient will go home with p.o. Augmentin 875 mg p.o. b.i.d. for 5 more days. 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 Health Concerns: As above. Plan of Treatment: Patient will go home with p.o. Augmentin 875 mg p.o. b.i.d. for 5 more days. Follow-up with surgery outpatient Assessment: As above. Patient Instructions: Diverticulitis (DC)
--- NOTE | 2023-06-30 12:02 | MHC.CM.PN ---
PT TO [place] HOME TODAY WITH NO SERVICES VIA FAMILY TRANSPORT
[2023-06-30] MEDS: Amoxicillin/Potassium Clav 875 MG TABLET PO (12:33)
== END 2023-06-30 13:20 | disposition home or self-care (01) | DRG 244 ==
LOC: HO.ED 18:09 → HO.EDOVER 22:05 → HO.S3 06-28 07:51
PROVIDERS: Nurse Practitioner Family; Physician Assistant; Surgery; Admitting Provider Student in an Organized Health Care Education/Training Program; Emergency Provider Emergency Medicine; PCP Internal Medicine; Visit Provider Internal Medicine
DX: K57.32 Diverticulitis of large intestine without perforation or abscess without bleeding (principal); J45.40 Moderate persistent asthma, uncomplicated; Z79.899 Other long term (current) drug therapy
CPT/HCPCS: 36415; 74177; 80048; 80053; 81003; 83605; 83690; 83735; 84100; 84478; 85007; 85025; 85027; 87040; 99221; 99285; J1170; J1650; J2270; J2405; J2543; J2550; J7120; Q9967

== ENCOUNTER → 2023-06-27 21:33 | Outpatient (BNV) | payer OTHER, SELFPAY | PROVIDERS: Admitting Provider Student in an Organized Health Care Education/Training Program; Emergency Provider Emergency Medicine; PCP Internal Medicine; Visit Provider Surgery | DX: K57.92 Diverticulitis of intestine, part unspecified, without perforation or abscess without bleeding (principal) | CPT/HCPCS: 99222; 99232 ==

== ENCOUNTER → 2023-06-27 21:33 | Outpatient (BNV) | payer OTHER, SELFPAY | PROVIDERS: Admitting Provider Student in an Organized Health Care Education/Training Program; Emergency Provider Emergency Medicine; PCP Internal Medicine; Visit Provider Internal Medicine | DX: K57.92 Diverticulitis of intestine, part unspecified, without perforation or abscess without bleeding (principal) | CPT/HCPCS: 99223; 99232; 99239 ==

== ENCOUNTER 2023-07-11 10:34 | Outpatient (AMB) | payer OTHER, SELFPAY ==
--- NOTE | 2023-07-11 10:36 | MHC.OFFVIS ---
Intake Vital Signs 07/11/23 10:45 Height 5 ft 10 in Weight 303 lb BMI 43.5 BP 134/74 Blood Pressure Location Lt brachial Position Sitting Pulse 60 Intake Visit Reasons: F/U inpatient-diverticulitis Intake Note: Patient is seen in office for ER follow up visit, following diverticulitis. Pt c/o: pain in the left abdomen for aprox 4 days, had this issue 3 times in the past 3 yrs, denies nausea, vomit, diarrhea, constipation, eating well, was given antibiotics (completed), currently has no symptoms ER: 06/27-06/30 Bilingual Inside Sales Representative Required: No Accompanied by: Spouse Allergies No Known Allergies Allergy (Verified 07/11/23 10:44) HPI HPI Comments History of Present Illness Details 58-year-old male patient returning for follow-up after recent hospitalization for diverticulitis. He was previously evaluated on 06/28/2023 and treated with IV antibiotics. He was subsequently discharged home on 06/30/2023 on oral antibiotics. He currently feels much improved but does report having 2 previous episodes of the same pain. He is interested in having surgery however would like to lose 20-30 lb prior to surgery. He is currently on a weight loss program at home. 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 I assured him that losing weight would improve his outcomes after surgery. We discussed being evaluated by the bariatric team as well. [facility] Medical History Moderate persistent asthma Diverticulosis Social History Household Members: Family Housing: House Do you presently have visiting nurse or other home services: No Alcohol intake: never Patient Tobacco Use Status: Never used Tobacco service: No Review of Systems Const All systems reviewed & are unremarkable except as noted in HPI and below Physical Exam Vital Signs: Last Vital Signs Pulse 60 07/11/23 10:45 BP 134/74 07/11/23 10:45 BMI result Body Mass Index 43.5 Const General: no acute distress Resp Effort & Inspection: normal respiratory effort GI Inspection: Yes normal to inspection Palpation (GI): Soft to palpation, nontender and no guarding Extrem General: No edema Assessment & Plan Assessment & Plan (1) Diverticulitis: Code(s): K57.92 - Diverticulitis of intestine, part unspecified, without perforation or abscess without bleeding Plan 58-year-old male patient with recurrent uncomplicated sigmoid diverticulitis. We discussed the possibility of recurrent diverticulitis is fairly high and he should consider proceeding to the elective sigmoid colectomy. He would like to lose some more weight prior to the surgery which I feel is a good idea. He will call our office should the pain return restart antibiotics or schedule the surgery. He should return to the office prior to this to review the procedure, risks and alternatives and discussed the preoperative preparation. He expressed understanding and agrees with the plan. Coding Level of Care Code Est Pt Level 3 (27033) Diagnoses Diverticulitis K57.92
[2023-07-11 10:45] VITALS: BP 134/74; PULSE 60; BMI 43.5
== END 2023-07-11 10:53 | disposition home or self-care (01) ==
PROVIDERS: PCP Internal Medicine; Visit Provider Surgery
DX: K57.92 Diverticulitis of intestine, part unspecified, without perforation or abscess without bleeding (principal)
CPT/HCPCS: 99213

== ENCOUNTER → 2023-07-11 10:34 | Outpatient (BNVA) | payer OTHER, SELFPAY | PROVIDERS: PCP Internal Medicine; Visit Provider Surgery | DX: K57.92 Diverticulitis of intestine, part unspecified, without perforation or abscess without bleeding (principal) | CPT/HCPCS: 99212 ==

== ENCOUNTER 2024-02-10 15:31 | Emergency (ER) | payer BC, SELFPAY ==
--- NOTE | ~2024-02-10 | US_ITS ---
EXAMINATION: US ABDOMEN LIMITED CLINICAL INFORMATION: Right upper quadrant pain.. COMPARISON: None available. TECHNIQUE: Real-time imaging of the right upper quadrant abdominal viscera. FINDINGS: PANCREAS: The visualized portions of the pancreas are within normal limits. LIVER: Normal. The liver is normal in size. The liver contour is normal. The liver is of increased parenchymal echotexture. No focal hepatic lesion. There is no intrahepatic biliary duct dilatation seen. GALLBLADDER: The gallbladder is contracted. No shadowing gallbladder calculi seen. There is no gallbladder wall thickening or pericholecystic fluid. A negative Hernandez sign was reported by the neurology technologist. COMMON BILE DUCT: The common bile duct measures up to 0.9 cm. 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 There is no hydronephrosis FREE FLUID: None. US/US abdomen limited IMPRESSION: 1. Increased hepatic parenchymal echotexture is a nonspecific finding but most commonly on the basis of diffuse hepatocellular disease such as hepatic steatosis. 2. The common bile duct is dilated to 0.9 cm. No intrahepatic biliary ductal dilatation. Consider correlation with LFTs. 3. Horseshoe kidney. 4. No gallstones. Electronically signed by: Lucho Collins MD 02/11/2024 04:13 AM EDT
--- NOTE | ~2024-02-10 | XR_ITS ---
EXAMINATION: XR CHEST CLINICAL INFORMATION: Pain. COMPARISON: Chest x-ray September 05, 2020 TECHNIQUE: 2 views of the chest were obtained. FINDINGS: No significant abnormality is noted involving the heart, lungs, mediastinum, bony thorax or soft tissues. XR/XR chest 2V IMPRESSION: Unremarkable examination. Electronically signed by: Ramesh Bailey MD 02/10/2024 05:27 PM EDT RP
[2024-02-10 16:02] VITALS: BP 149/84; PULSE 67; RESP 22; TEMP 36.4; O2SAT 98; BMI 45.0
--- NOTE | 2024-02-10 16:02 | ED_ITS ---
HPI - General Adult General Chief complaint: Chest Pain Stated complaint: upper abd pain Time Seen by Provider: 02/10/24 22:44 Source: patient and family Mode of arrival: ambulatory Limitations: no limitations History of Present Illness ED Provider: Dr. Abreu HPI narrative: patient with 4 days of right rib pain worse with breathing. Patient denies cough, nausea, vomiting, diarrhea. He has not had any fever. Related Data Home Medications ?Medication ?Instructions ?Recorded ?Confirmed acetaminophen 325 mg tablet 650 mg PO Q6H PRN Pain 06/27/23 06/27/23 (Tylenol) albuterol sulfate 90 mcg/actuation 2 puff inhalation Q6H PRN wheezing 06/27/23 06/27/23 aerosol inhaler (Ventolin HFA) cholecalciferol (vitamin D3) 25 25 mcg PO DAILY 06/27/23 06/27/23 mcg (1,000 unit) tablet (Vitamin D3) Previous Rx's ?Medication ?Instructions ?Recorded amoxicillin 500 mg-potassium 1 tab PO Q8H #20 tabs 11/08/23 clavulanate 125 mg tablet Allergies Allergy/AdvReac Type Severity Reaction Status Date / Time No Known Allergies Allergy Verified 02/10/24 16:04 Review of Systems 2 Review of Systems: Yes all other systems are reviewed and are negative Neurologic: Denies Sensory deficit (Neuro) PMF Past Medical History Medical History Moderate persistent asthma Diverticulosis Social History Social History Household Members: Family Housing: House Do you presently have visiting nurse or other home services: No Alcohol intake: never Patient Tobacco Use Status: Never used Tobacco Advance Directives: No Advance Directives Information Provided: No service: No Physical Exam ED Vital Signs: Vital Signs - 24 hr 02/10/24 16:02 02/10/24 22:59 02/11/24 02:00 Temperature 97.5 F 97.3 F 98.7 F Pulse Rate 67 65 50 Respiratory Rate 22 H 16 16 Blood Pressure 149/84 H 136/79 124/75 Pulse Oximetry 98 95 97 Oxygen Delivery Method Room Air Room Air Room Air BMI result Body Mass Index 45.0 Const Nutritional Appearance: average body habitus and obese Orientation/consciousness: oriented to person and patient oriented x3 Limitations: no limitations HENMT Head: Yes normal to inspection Ears: external ears normal General nose exam: Normal external nose present Mouth: Normal oral and palatal mucosa present and oropharynx normal Throat: Yes posterior oropharynx normal Eyes General: appearance normal, both eyes and all related structures Neck Neck: Yes normal visual inspection Chest Chest palpation & inspection: normal inspection of the chest Resp Auscultation: clear to auscultation bilaterally Cardio Jugular venous distension: no JVD Rate: regular rate Rhythm: regular rhythm Heart sounds: S1 normal heart sound present and S2 normal heart sound present GI Other: obese with right upper quadrant tenderness to palpation Auscultation: normal bowel sounds General: Yes no CVA tenderness Back/Spine/Pelvis Back: no CVA tenderness Skin General skin exam: no rashes or lesions noted Neuro General: oriented to person and patient oriented x3 Cranial nerves: Yes CN's II-XII intact bilaterally Motor exam (neuro): 5/5 motor strength present throughout Sensory Exam: No Sensory deficit (Neuro) Extrem General: Yes normal to inspection Psych Appearance: grossly normal Course Course Course Narrative: RME performed by Jennifer Alfonso PA-C. Patient is a 59 year old assigned male at presenting to the emergency department with right sided upper chest pain with breathing. Detailed physical exam and review of systems are deferred to the primary school principal. EKG, labs, imaging, and swabs ordered. Patient placed back in the waiting room pending room availability and results. Reevaluation(s) Reevaluation #1: Patient does not have rib pain, he has right upper quadrant pain. LFTs, lipase normal, US shows no stones will dc on nsaids Time: 00:40 Medical Decision Making Differential Diagnosis Differential Diagnoses: The differential diagnosis associated with the presentation includes (gallstones, hepatitis, pancreatitis, UTI, pyelonephrtitis) Admission/Observation Consideration of admission/observation: Escalation of care including admission/observation considered (upon arrival admission was considered) Lab Data 02/10/24 16:27 02/10/24 16:27 Labs: Lab Results 02/10/24 02/10/24 Range/Units 16:27 23:36 WBC 9.6 (4.8-10.8) X10*3/uL RBC 5.47 (4.60-5.80) X10*6/uL Hgb 15.8 (14.0-18.0) g/dl Hct 47.4 (42.0-52.0) % MCV 86.7 (80.0-98.0) fL MCH 28.9 (27.0-33.0) pg MCHC 33.3 (31.0-36.0) g/dl RDW 13.1 (11.0-16.0) % Plt Count 161 (160-400) X10*3/uL MPV 10.9 (9.4-12.4) fL Immature Gran % (Auto) 0.4 (0.0-0.4) % Neut % (Auto) 65.9 (45-73) % Lymph % (Auto) 19.0 L (20-40) % Garrard % (Auto) 9.2 (2-11) % Eos % (Auto) 4.9 H (0-4) % Baso % (Auto) 0.6 (0-2) % Lymph # (Auto) 1.8 (1.2-4.9) X10*3/uL Garrard # (Auto) 0.9 (0.1-1.2) X10*3/uL Eos # (Auto) 0.5 H (0.0-0.4) X10*3/uL Baso # (Auto) 0.1 (0.0-0.2) X10*3/uL Abs Immat Gran (auto) 0.04 H (0.00-0.03) X10*3/uL Absolute Neuts (auto) 6.3 (2.0-8.3) x10*3/uL Absolute Nucleated RBC 0.000 (0.0-0.012) X10*3/uL Nucleated RBC % (auto) 0.0 (0.0-0.2) /100WBC PT 11.5 (10.9-12.4) SEC INR 1.0 (0.9-1.1) APTT 36.6 (26.0-36.8) SEC Sodium 141 (135-145) mmol/L Potassium 4.4 (3.3-5.1) mmol/L Chloride 107 (96-108) mmol/L Carbon Dioxide 26 (22-29) mmol/L Anion Gap 12 (12-20) BUN 15 (9-16) mg/dL Creatinine 0.87 (0.5-1.4) mg/dL Estim Creat Clear Calc 133.5 Estimated GFR > 60 Random Glucose 131 H (60-115) mg/dL Calcium 9.6 D (8.4-10.2) mg/dL Magnesium 1.8 (1.6-2.6) mg/dL Total Bilirubin 0.6 (0.0-1.0) mg/dL AST 28 (5-37) U/L ALT 25 (0-40) U/L Alkaline Phosphatase 65 (39-117) U/L Troponin I High Sens 2.8 (<3.5-35.0) ng/L Total Protein 7.3 (6.5-8.0) g/dL Albumin 4.0 (3.5-5.0) g/dL Urine Color Yellow Urine Appearance Clear Urine pH 5.5 (5.0-9.0) Ur Specific Parker 1.020 (1.005-1.025) Urine Protein Negative (Neg-Trace) mg/dL Urine Glucose (UA) Negative (Negative) mg/dL Urine Ketones Negative (Negative) mg/dL Urine Blood Negative (Negative) Urine Nitrite Negative (Negative) Ur Leukocyte Esterase Negative (Negative) Influenza Type A (PCR) NEGATIVE (Negative) Influenza Type B (PCR) NEGATIVE (Negative) RSV RNA Qual (PCR) NEGATIVE (Negative) SARS-CoV-2 RNA (RT-PCR) NEGATIVE (Negative) Independent Interpretation I performed an independent interpretation of an: Ultrasound (no gallstones) Independent Historian Clinical information obtained from an independent historian. History obtained from or confirmed by: Spouse Tests considered The following testing was considered but not selected: CT of abdomen considered but biliary pathology seemed the highest likelihood so US was performed Prescription Management I considered prescription management with: Antibiotic (no evidence of bacterial infection) Social Determinants Patient?s care significantly limited by Social Determinants of Health including: Low income Discharge Plan Discharge Clinical Impression: Nonalcoholic hepatosteatosis Patient Disposition: Home, Self-Care Instructions: Non-Alcoholic Fatty Liver Disease (ED) Prescriptions: No Action amoxicillin-pot clavulanate 500-125 mg tablet 1 tab PO Q8H Qty: 20 0RF acetaminophen [Tylenol] 325 mg Tablet 650 mg PO Q6H PRN (Reason: Pain) albuterol sulfate [Ventolin HFA] 90 mcg/actuation HFA aerosol inhaler 2 puff inhalation Q6H PRN (Reason: wheezing) cholecalciferol (vitamin D3) [Vitamin D3] 25 mcg (1,000 unit) tablet 25 mcg PO DAILY Referrals: Physician,None [Primary Care Provider] - 5 days Print Language: Croatian
--- NOTE | 2024-02-10 16:03 | ECG_ITS ---
Test Reason : SOB Blood Pressure : / mmHG Vent. Rate : 067 BPM Atrial Rate : 067 BPM P-R Int : 144 ms QRS Dur : 090 ms QT Int : 408 ms P-R-T Axes : 036 -17 022 degrees QTc Int : 431 ms Normal sinus rhythm Minimal voltage criteria for LVH, may be normal variant ( R in aVL ) Borderline ECG No previous ECGs available Referred By: Jennifer Aflonso Electronically Signed By:THANH QUINTANA
[2024-02-10 16:32] LABS: MANUAL DIFF FLAG NO
[2024-02-10 16:36] LABS: Basophils Absolute Auto 0.1 X10*3/uL (0.0-0.2); Basophils Percent Auto 0.6 % (0-2); Eosinophils Absolute Auto 0.5 X10*3/uL (0.0-0.4); Eosinophils Percent Auto 4.9 % (0-4); Hematocrit 47.4 % (42.0-52.0); Hemoglobin 15.8 g/dl (14.0-18.0); Imm Gran Abs Auto 0.04 X10*3/uL (0.00-0.03); Imm Gran Pct Auto 0.4 % (0.0-0.4); Lymphocytes Absolute Auto 1.8 X10*3/uL (1.2-4.9); Mean Corpuscular HGB Conc 33.3 g/dl (31.0-36.0); Mean Corpuscular Hemoglobin 28.9 pg (27.0-33.0); Mean Corpuscular Volume 86.7 fL (80.0-98.0); Mean Platelet Volume 10.9 fL (9.4-12.4); Monocytes Absolute Auto 0.9 X10*3/uL (0.1-1.2); Monocytes Percent Auto 9.2 % (2-11); Neutrophils Absolute Auto 6.3 x10*3/uL (2.0-8.3); Neutrophils Percent Auto 65.9 % (45-73); Platelet Count 161 X10*3/uL (160-400); Red Blood Count 5.47 X10*6/uL (4.60-5.80); Red Cell Distribution Width 13.1 % (11.0-16.0); White Blood Count 9.6 X10*3/uL (4.8-10.8)
[2024-02-10 16:47] LABS: Prothrombin Time 11.5 SEC (10.9-12.4)
[2024-02-10 16:49] LABS: Partial Thromboplastin Time 36.6 SEC (26.0-36.8)
[2024-02-10 16:52] LABS: Alanine Aminotransferase 25 U/L (0-40); Alkaline Phosphatase 65 U/L (39-117); Anion Gap 12 (12-20); Aspartate Amino Transferase 28 U/L (5-37); Bilirubin Total 0.6 mg/dL (0.0-1.0); Blood Urea Nitrogen 15 mg/dL (9-16); Calcium 9.6 mg/dL (8.4-10.2); Carbon Dioxide 26 mmol/L (22-29); Chloride 107 mmol/L (96-108); Creatinine Clr Calc Pharmacy 133.5; Estimated Glomerular Filt Rate > 60; Glucose Random 131 mg/dL (60-115); Magnesium 1.8 mg/dL (1.6-2.6); Potassium 4.4 mmol/L (3.3-5.1); Sodium 141 mmol/L (135-145); Total Protein 7.3 g/dL (6.5-8.0)
[2024-02-10 16:59] LABS: Troponin-I High Sensitivity 2.8 ng/L (<3.5-35.0)
[2024-02-10 17:14] LABS: Influenza A PCR NEGATIVE (Negative); Influenza B PCR NEGATIVE (Negative); Resp Syncy Virus RNA Qual PCR NEGATIVE (Negative); SARS COV2 PCR INHOUSE NEGATIVE (Negative)
[2024-02-10 22:59] VITALS: BP 136/79; PULSE 65; RESP 16; TEMP 36.3; O2SAT 95
[2024-02-10 23:46] LABS: Appearance Urine Clear; Color Urine Yellow; Glucose Urine UA Negative (Negative); Leukocyte Esterase Urine Negative (Negative); Nitrite Urine Negative (Negative); PH 5.5 (5.0-9.0); Urine Blood Negative (Negative); Urine Ketones Negative (Negative); Urine Protein Negative (Neg-Trace)
[2024-02-11 02:00] VITALS: BP 124/75; PULSE 50; RESP 16; TEMP 37.1; O2SAT 97
[2024-02-11 04:38] VITALS: BP 138/72; PULSE 62; RESP 16; TEMP 36.6; O2SAT 97
== END 2024-02-11 04:39 | disposition home or self-care (01) ==
PROVIDERS: Physician Assistant Medical; Emergency Provider Emergency Medicine
DX: K75.81 Nonalcoholic steatohepatitis (NASH) (principal); R07.9 Chest pain, unspecified; R10.11 Right upper quadrant pain; R07.1 Chest pain on breathing; J45.40 Moderate persistent asthma, uncomplicated; Z79.899 Other long term (current) drug therapy; Z03.818 Encounter for observation for suspected exposure to other biological agents ruled out
CPT/HCPCS: 0241U; 36415; 71046; 76705; 80053; 81003; 83735; 84484; 85025; 85610; 85730; 93005; 99284

== ENCOUNTER 2025-01-04 09:18 | Emergency (ER) | payer BC, SELFPAY ==
[2025-01-04 09:52] VITALS: BP 148/80; PULSE 67; RESP 16; TEMP 37; O2SAT 96; BMI 45.4
--- NOTE | 2025-01-04 10:01 | ED.SKABFB ---
HPI - Skin/Abscess/Foreign Bdy General Chief complaint: Skin/Abscess/Foreign Body Stated complaint: pt states pain on left ribs and blisters on back Time Seen by Provider: 01/04/25 09:55 Source: patient Mode of arrival: ambulatory Limitations: no limitations History of Present Illness ED Provider: AGUSTÍN HAWTHORNE PA-C HPI narrative: 59-year-old male with pmhx significant for diverticulitis presents to the ED today for evaluation of rib/ back pain. Patient reports left lower rib pain x1 week. He states that he took off his shirt last night and his noticed blisters to the left side of his back and left lower rib area. Denies blisters to any other part of his body. Denies fever, chills. No sick contacts. Denies tick or insect bites. Denies new soaps, lotions, detergents. Denies new medications or antibiotics. Related Data Home Medications ?Medication ?Instructions ?Recorded ?Confirmed acetaminophen 325 mg tablet 650 mg PO Q6H PRN Pain 06/27/23 06/27/23 (Tylenol) albuterol sulfate 90 mcg/actuation 2 puff inhalation Q6H PRN wheezing 06/27/23 06/27/23 aerosol inhaler (Ventolin HFA) cholecalciferol (vitamin D3) 25 25 mcg PO DAILY 06/27/23 06/27/23 mcg (1,000 unit) tablet (Vitamin D3) Previous Rx's ?Medication ?Instructions ?Recorded amoxicillin 500 mg-potassium 1 tab PO Q8H #20 tabs 11/08/23 clavulanate 125 mg tablet gabapentin 100 mg capsule 100 mg PO BID PRN pain (scale 01/04/25 score 4-6) 5 days #10 caps valacyclovir 1 gram tablet 1,000 mg PO TID 7 days #21 tabs 01/04/25 (Valtrex) Allergies Allergy/AdvReac Type Severity Reaction Status Date / Time No Known Allergies Allergy Verified 01/04/25 09:54 Review of Systems Review of Systems: Yes all other systems are reviewed and are negative PMFSH Past Medical History Attestation statement: The following information was validated with the patient. Source: old records reviewed and nursing notes reviewed Medical History Moderate persistent asthma Diverticulosis Social History Social History Household Members: Family Housing: House Do you presently have visiting nurse or other home services: No Alcohol intake: never Patient Tobacco Use Status: Never used Tobacco Advance Directives: No Advance Directives Information Provided: Yes service: No Physical Exam Vital Signs: Vital Signs: Last Vital Signs Temp 98.6 F 01/04/25 10:13 Pulse 67 01/04/25 10:13 Resp 16 01/04/25 10:13 BP 148/80 H 01/04/25 10:13 Pulse Ox 96 01/04/25 10:13 O2 Del Method Room Air 01/04/25 10:13 BMI result Body Mass Index 45.4 hypertensive, vitals are otherwise wnl General: Well appearing, in no acute distress. Skin: +vesicles on erythematous base noted along left T6 through T8 dermatomes (back and left lower ribs), does not cross midline, no sloughing, no target lesions, spares mucous membranes, spares palms/soles/webbed spaces Head: Normocephalic, atraumatic. EENT: Hearing is intact b/l. Conjunctiva clear. PERRLA. EOM intact. Moist mucous membranes.? Neck: Supple without LAD Cardiac: Chest wall symmetric. RRR Lungs: Normal respiratory effort without accessory muscle use. CTA bilaterally Ext: Upper and lower extremities atraumatic, without tenderness, deformity, swelling or erythema Neuro: AOx3. Normal speech. Ambulating with steady gait. Medical Decision Making Medical Decision Making MDM Narrative: 59-year-old male with pmhx significant for diverticulitis presents to the ED today for evaluation of rib/ back pain. vitals are stable. he is well appearing and in NAD, on exam vesicles on erythematous base noted along left T6 through T8 dermatomes (back and left lower ribs), does not cross midline, no sloughing, no target lesions, spares mucous membranes, spares palms/soles/webbed spaces Differential diagnosis includes shingles. Lower suspicion for contact/atopic/eczematous dermatitis, psoriasis. History and exam findings not consistent with lyme/tick bourne illness, herpes simplex, scabies, HFM,?dangerous etiologies of rash such as SJS/TEN, or secondary dangerous causes such as petechial rashes from thrombocytopenia or rickettsial infections.? Exam is consistent with shingles to thorax. Will send patient home with script for Valtrex and gabapentin for pain control. Advised PCP follow-up. Patient has remained stable throughout ED visit today. Discussed worrisome signs and symptoms and when to return to the ED. All questions answered at this time. Patient is agreeable with disposition and stable for discharge. Differential Diagnosis Differential Diagnoses: The differential diagnosis associated with the presentation includes as above. Admission/Observation not indicated. External Record Review External record reviewed: Inpatient record Prescription Management I considered prescription management with: Antiviral (valtrex) and Other (gabapentin) Social Determinants Patient?s care significantly limited by Social Determinants of Health including: Other Social Determinant of Health Critical Care Time Critical Care Time Critical Care Time: No Discharge Plan Discharge Clinical Impression: Shingles Patient Disposition: Home, Self-Care Instructions: Gabapentin (By mouth), Shingles (ED) Additional Instructions: You have shingles. See home care instructions. You are contagious until all blister lesions scab over. Make sure to stay away from persons. Valtrex as an antiviral medication. Take this as prescribed over the next week. You may take Tylenol and Motrin at home as needed for pain. Gabapentin as a nerve pain medication that has been sent to your pharmacy for you to take as needed for breakthrough pain. This may make you sleepy. Follow up with your primary care provider. Return with any new or worsening symptoms. In the case of an emergency call 911. Prescriptions: New valacyclovir [Valtrex] 1 gram tablet 1,000 mg PO TID 7 Days Qty: 21 0RF gabapentin 100 mg capsule 100 mg PO BID PRN (Reason: pain (scale score 4-6)) 5 Days Qty: 10 0RF No Action amoxicillin-pot clavulanate 500-125 mg tablet 1 tab PO Q8H Qty: 20 0RF acetaminophen [Tylenol] 325 mg Tablet 650 mg PO Q6H PRN (Reason: Pain) albuterol sulfate [Ventolin HFA] 90 mcg/actuation HFA aerosol inhaler 2 puff inhalation Q6H PRN (Reason: wheezing) cholecalciferol (vitamin D3) [Vitamin D3] 25 mcg (1,000 unit) tablet 25 mcg PO DAILY Referrals: Physician,None [Primary Care Provider, Medical] Stand Alone Forms: Work/School Release Interventions: ED Discharge Assessment Last Done: 01/04/25 10:13 Discharge Date/Time: 01/04/25 10:30 Print Language: Lao
[2025-01-04 10:13] VITALS: BP 148/80; PULSE 67; RESP 16; TEMP 37; O2SAT 96
== END 2025-01-04 10:30 | disposition home or self-care (01) ==
PROVIDERS: Emergency Provider Emergency Medicine
DX: B02.9 Zoster without complications (principal); M54.9 Dorsalgia, unspecified; R07.81 Pleurodynia
CPT/HCPCS: 99282; 99283